=== PATIENT | female | born 1995 | race African-American/Black ===

== ENCOUNTER → 2017-09-25 | Outpatient (CLI) | payer SELFPAY ==
--- NOTE | 2017-09-25 16:27 | RADIOLOGY REPORT (SQ) ---
EXAM DESCRIPTION: U/S [id number] TRNABD 1GES W/ODOP COMPLETED DATE/TIME: 09/25/2017 3:41 pm REASON FOR STUDY: ENCOUNTER FOR SUPERVISION OF NORMAL Z34.81 ENCOUNTER FOR SUPRVSN OF NOR MAL , FIRST TRIM COMPARISON: None. TECHNIQUE: Transabdominal static and realtime grayscale images acquired of the pelvis. Additional se lected spectral and color Doppler images recorded. All images stored on PACs. bHCG: Not applicable. LIMITATIONS: None. FINDINGS: FETUS: Living intrauterine . EGA: 9 week. DARLING: 04/30/2018. FHR: 169 beats per minute. SUBCHORIONIC BLEED: No. SIZE OF BLEED: Not applicable. UTERUS: No masses. No anomalies. CERVICAL LENGTH: 2.8 cm. Closed. RIGHT ADNEXA: Ovary not identified. No adnexal free fluid. No adnexal masses. LEFT ADNEXA: Normal ovary with normal vascular flow. No adnexal free fluid. No adnexal masses. FREE FLUID: None. OTHER: No other significant finding. IMPRESSION: LIVING INTRAUTERINE . EGA 9 WEEK. Trimester of : First - 0 to 13 weeks. TECHNICAL DOCUMENTATION: JOB ID: [id number] [employer]- All Rights Reserved
== END ==
LOC: RAD 14:55
PROVIDERS: ATTEND Nurse Practitioner Women's Health
DX: Z34.81 Encounter for supervision of other normal pregnancy, first trimester (principal)
CPT/HCPCS: 76801

== ENCOUNTER 2017-10-14 13:46 | Emergency (ER) | payer SELFPAY ==
--- NOTE | 2017-10-14 14:14 | ER Document Report ---
ED Medical Screen (RME) - General Chief Complaint: Vaginal Bleeding Stated Complaint: VAGINAL BLEEDING Time Seen by Provider: 10/14/17 14:10 Notes: Patient is 12 weeks and started having vaginal bleeding about 45 minutes ago. Denies any pain or cramping. Has not had any bleeding during the previously. She had a normal first ultrasound of the here about 3 weeks ago. G2, P0, A1. TRAVEL OUTSIDE OF THE [place] IN LAST 30 DAYS: No - Related Data Allergies/Adverse Reactions: No Known Allergies Allergy (Verified 08/17/14 09:20) Past Medical History - Social History Frequency of alcohol use: None Drug Abuse: None Renal/ Medical History: Denies: Hx Peritoneal Dialysis Traumatic Medical History: Reports: Hx Fractures - C5,C6- Cheerleading accident Past Surgical History: Reports: Hx Breast Surgery - right breast cyst, Hx Orthopedic Surgery - C5-C6 surgery - Immunizations Immunizations up to date: Yes Hx Diphtheria, Pertussis, Tetanus Vaccination: Yes Physical Exam - Vital signs Vitals: Temp Pulse Resp BP Pulse Ox 97.7 F 115 H 18 138/91 H 100 10/14/17 13:53 10/14/17 13:53 10/14/17 13:53 10/14/17 13:53 10/14/17 13:53 Course - Vital Signs Vital signs: Temp Pulse Resp BP Pulse Ox 97.7 F 115 H 18 138/91 H 100 10/14/17 13:53 10/14/17 13:53 10/14/17 13:53 10/14/17 13:53 10/14/17 13:53
--- NOTE | 2017-10-14 15:30 | RADIOLOGY REPORT (SQ) ---
EXAM DESCRIPTION: U/S [id number] TRNABD 1GES W/ODOP COMPLETED DATE/TIME: 10/14/2017 3:20 pm REASON FOR STUDY: 12 weeks , vaginal bleeding COMPARISON: 09/25/2017. TECHNIQUE: Transabdominal static and realtime grayscale images acquired of the pelvis. Additional se lected spectral and color Doppler images recorded. All images stored on PACs. bHCG: Not applicable. LIMITATIONS: None. FINDINGS: FETUS: EGA: 12 week 3 day. DARLING: 04/25/2018. EFW: Not applicable. FHR: 150 beats per minute. DOMINGO: Adequate amount. CERVICAL LENGTH: 4.2 cm. Closed. UTERUS: No masses. RIGHT ADNEXA: Ovary not identified. No adnexal free fluid. No adnexal masses. LEFT ADNEXA: Ovary not identified. No adnexal free fluid. No adnexal masses. FREE FLUID: None. OTHER: Subchorionic bleed measuring 2.5 x 3.7 x 4.5 cm. IMPRESSION: LIVING INTRAUTERINE . ESTIMATED GESTATIONAL AGE:12 WEEK 3 DAY. SUBCHORIONIC BLEED. Trimester of : First trimester - 0 to 13 weeks. TECHNICAL DOCUMENTATION: JOB ID: [id number] [employer]- All Rights Reserved Reading location - IP/workstation name: [email or web address]
[2017-10-14 16:33] LABS: ABSOLUTE BASOPHILS # (AUTO) 0.1 10^3/uL (0.0-0.2); ABSOLUTE EOSINOPHILS # (AUTO) 0.1 10^3/uL (0.0-0.6); ABSOLUTE LYMPHOCYTES (AUTO) 2.4 10^3/uL (0.5-4.7); ABSOLUTE MONOCYTES (AUTO) 0.4 10^3/uL (0.1-1.4); ABSOLUTE NEUT (AUTO) 8.2 10^3/uL (1.7-8.2); BASOPHILS % (AUTO) 0.6 % (0-2); EOSINOPHILS % (AUTO) 0.8 % (0-6); HEMATOCRIT 39.7 % (36.0-47.0); HEMOGLOBIN 13.9 g/dL (12.0-15.5); LYMPHOCYTES % (AUTO) 21.6 % (13-45); MEAN CORPUSCULAR HEMOGLOBIN 29.8 pg (27.0-33.4); MEAN CORPUSCULAR VOLUME 85 fl (80-97); PLATELET COUNT 360 10^3/uL (150-450); RED BLOOD COUNT 4.66 10^6/uL (3.72-5.28); RED CELL DISTRIBUTION WIDTH 12.7 % (11.5-14.0); TOTAL CELLS COUNTED % (AUTO) 100 %; WHITE BLOOD COUNT 11.2 10^3/uL (4.0-10.5)
--- NOTE | 2017-10-14 16:34 | ER Document Report ---
ED General - General Chief Complaint: Vaginal Bleeding Stated Complaint: VAGINAL BLEEDING Time Seen by Provider: 10/14/17 14:10 Mode of Arrival: Ambulatory Information source: Patient TRAVEL OUTSIDE OF THE [place] IN LAST 30 DAYS: No - HPI Patient complains to provider of: vaginal bleeding Onset: Just prior to arrival Onset/Duration: Sudden Quality of pain: Cramping - pelvic Associated symptoms: None Exacerbated by: Denies Relieved by: Denies Similar symptoms previously: No Notes: . Miscarried 6 months ago at 5 weeks gestation. Patient states she is seen by the health department. - Related Data Allergies/Adverse Reactions: No Known Allergies Allergy (Verified 08/17/14 09:20) Past Medical History - General Information source: Patient - Social History Smoking Status: Never Smoker Frequency of alcohol use: None Drug Abuse: None Family History: Reviewed & Not Pertinent Patient has suicidal ideation: No Patient has homicidal ideation: No - Past Medical History Cardiac Medical History: Reports: None Pulmonary Medical History: Reports: None EENT Medical History: Reports: None Neurological Medical History: Reports: None Endocrine Medical History: Reports: None Renal/ Medical History: Reports: None. Denies: Hx Peritoneal Dialysis Malignancy Medical History: Reports: None GI Medical History: Reports: None Musculoskeltal Medical History: Reports Other - C5-C6 fracture Skin Medical History: Reports None Psychiatric Medical History: Reports: None Traumatic Medical History: Reports: Hx Fractures - C5,C6- Cheerleading accident Past Surgical History: Reports: Hx Breast Surgery - right breast cyst, Hx Orthopedic Surgery - C5-C6 surgery - Immunizations Immunizations up to date: Yes Hx Diphtheria, Pertussis, Tetanus Vaccination: Yes Review of Systems - Review of Systems Constitutional: No symptoms reported EENT: No symptoms reported Cardiovascular: No symptoms reported Respiratory: No symptoms reported Gastrointestinal: No symptoms reported Genitourinary: No symptoms reported Female Genitourinary: See HPI Musculoskeletal: No symptoms reported Skin: No symptoms reported Hematologic/Lymphatic: No symptoms reported Neurological/Psychological: No symptoms reported Physical Exam - Vital signs Vitals: Temp Pulse Resp BP Pulse Ox 97.7 F 115 H 18 138/91 H 100 10/14/17 13:53 10/14/17 13:53 10/14/17 13:53 10/14/17 13:53 10/14/17 13:53 - Notes Notes: PHYSICAL EXAMINATION: GENERAL: Well-appearing, well-nourished and in no acute distress. HEAD: Atraumatic, normocephalic. EYES: Pupils equal round and reactive to light, extraocular movements intact, conjunctiva are normal. ENT: Nares patent, oropharynx clear without exudates. Moist mucous membranes. Nose ring present. NECK: Normal range of motion, supple without lymphadenopathy LUNGS: Breath sounds clear to auscultation bilaterally and equal. No wheezes rales or rhonchi. HEART: Regular rate and rhythm without murmurs ABDOMEN: Soft, nontender, nondistended abdomen. No guarding, no rebound. No masses appreciated. Female : External female genitalia within normal limits. Vaginal vault had one blood clot in it with approximately 30 cc of blood. Os intact. Musculoskeletal: Normal range of motion, no pitting or edema. No cyanosis. NEUROLOGICAL: Cranial nerves grossly intact. Normal speech, normal gait. Normal sensory, motor exams PSYCH: Normal mood, normal affect. SKIN: Warm, Dry, normal turgor, no rashes or lesions noted. Course - Re-evaluation Re-evalutation: 10/14/17 17:30 Labs- All tests 24 hr 10/14/17 10/14/17 16:11 16:11 WBC 11.2 H RBC 4.66 Hgb 13.9 Hct 39.7 MCV 85 MCH 29.8 MCHC 35.0 RDW 12.7 Plt Count 360 Seg Neutrophils % 73.0 Lymphocytes % 21.6 Monocytes % 4.0 Eosinophils % 0.8 Basophils % 0.6 Absolute Neutrophils 8.2 Absolute Lymphocytes 2.4 Absolute Monocytes 0.4 Absolute Eosinophils 0.1 Absolute Basophils 0.1 Blood Type O POSITIVE Rhogam Indicated RHOGAM NOT INDICATED Obstetrics Ultrasound 10/14/17 14:12 IMPRESSION: LIVING INTRAUTERINE . ESTIMATED GESTATIONAL AGE:12 WEEK 3 DAY. SUBCHORIONIC BLEED. Trimester of : First trimester - 0 to 13 weeks. 10/14/17 17:39 I did spend 15 minutes in the patient's room going over the ultrasound report with the patient her boyfriend as well as her parents. I did go over the lab work as well.I did go over the findings on ultrasound including the subchorionic bleed. I did tell her that bleeding in although not normal does not absolutely mean she will miscarry. I said at this point it is indeterminate whether she will or she will not. I told her no heavy lifting or strenuous exercise. She is to be on pelvic rest. I did give her a list of OB/ [employer] doctors she is to call Sunday. She is also to call the health department for follow-up. I did go over reasons to return to the emergency department including fevers, increased abdominal pain, increased bleeding, fainting or any other concerns. All questions were answered that were asked by the patient's parents as well as the patient. Her boyfriend did not have any questions. Patient was discharged home in stable condition agreeable to the discharge plan. - Vital Signs Vital signs: Temp Pulse Resp BP Pulse Ox 97.7 F 87 16 132/73 H 100 10/14/17 13:53 10/14/17 17:06 10/14/17 15:20 10/14/17 17:06 10/14/17 13:53 - Laboratory Result Diagrams: 10/14/17 16:11 Laboratory results interpreted by me: 10/14/17 16:11 WBC 11.2 H - Diagnostic Test Radiology reviewed: Image reviewed, Reports reviewed Discharge - Discharge Clinical Impression: Subchorionic hematoma in second trimester, Threatened in second trimester Disposition: HOME, SELF-CARE Instructions: [facility] [employer] Doctors, Threatened Miscarriage ([facility]) Additional Instructions: Follow up with your physician tomorrow for further care or return to the ED IMMEDIATELY if symptoms worsen or new concerns occur. If you cannot afford to follow up with your primary care physician a list of low cost clinics have been provided at the end of your discharge papers as well. On Sunday please call the health department for follow-up. Also called the list of [employer]PER[employer] doctors I gave you to see if you get an appointment. Return to the emergency department if you have increased pain, increased vaginal bleeding, fevers, intractable vomiting or any other concerns. Please no heavy lifting or exertion. No sexual intercourse. Drink plenty of water and stay hydrated.
[2017-10-14 17:59] VITALS: BP 123/71
== END 2017-10-14 17:55 | disposition home or self-care (01) ==
LOC: ER 13:46
DX: O20.0 Threatened abortion (principal); Z3A.12 12 weeks gestation of pregnancy
CPT/HCPCS: 36415; 76801; 84702; 85025; 86900; 86901; 99284

== ENCOUNTER 2017-10-19 21:36 | Emergency (ER) | payer MEDICAID ==
[2017-10-19] MEDS ORDERED: NORMAL SALINE 1000 ML 1,000 ML IV ONE (23:24)
--- NOTE | 2017-10-19 23:25 | ER Document Report ---
ED Medical Screen (RME) - General Chief Complaint: Vaginal Bleeding Stated Complaint: VAGINAL BLEEDING WITH Time Seen by Provider: 10/19/17 23:23 Notes: 21-year-old female, at 13 weeks gestation by first trimester ultrasound, comes emergency department for chief complaint of increased cramping and bleeding. She had bleeding a few days ago which was mild, was evaluated here at that time and told that she was okay, told return if she worsens, she has worsened and is now is passing clots. She also states that she continues to have morning sickness and has vomiting multiple times a day. Denies fevers. Denies passing out. TRAVEL OUTSIDE OF THE [place] IN LAST 30 DAYS: No - Related Data Allergies/Adverse Reactions: No Known Allergies Allergy (Verified 10/19/17 21:36) Past Medical History - Social History Chew tobacco use (# tins/day): No Frequency of alcohol use: None Drug Abuse: None Renal/ Medical History: Denies: Hx Peritoneal Dialysis Traumatic Medical History: Reports: Hx Fractures - C5,C6- Cheerleading accident Past Surgical History: Reports: Hx Breast Surgery - right breast cyst, Hx Orthopedic Surgery - C5-C6 surgery - Immunizations Immunizations up to date: Yes Hx Diphtheria, Pertussis, Tetanus Vaccination: Yes Physical Exam - Vital signs Vitals: Temp Pulse Resp BP Pulse Ox 98.5 F 101 H 14 135/72 H 99 10/19/17 21:40 10/19/17 21:40 10/19/17 21:40 10/19/17 21:40 10/19/17 21:40 - General General appearance: Appears well In distress: None - Cardiovascular Rhythm: Regular, Tachycardia - Borderline Heart sounds: Normal auscultation, S1 appreciated, S2 appreciated Course - Vital Signs Vital signs: Temp Pulse Resp BP Pulse Ox 98.5 F 101 H 14 135/72 H 99 10/19/17 21:40 10/19/17 21:40 10/19/17 21:40 10/19/17 21:40 10/19/17 21:40
[2017-10-19 23:54] LABS: ABSOLUTE BASOPHILS # (AUTO) 0.1 10^3/uL (0.0-0.2); ABSOLUTE EOSINOPHILS # (AUTO) 0.1 10^3/uL (0.0-0.6); ABSOLUTE LYMPHOCYTES (AUTO) 2.4 10^3/uL (0.5-4.7); ABSOLUTE MONOCYTES (AUTO) 0.6 10^3/uL (0.1-1.4); ABSOLUTE NEUT (AUTO) 12.2 10^3/uL (1.7-8.2); BASOPHILS % (AUTO) 0.4 % (0-2); HEMATOCRIT 39.1 % (36.0-47.0); HEMOGLOBIN 13.7 g/dL (12.0-15.5); LYMPHOCYTES % (AUTO) 15.7 % (13-45); MEAN CORPUSCULAR HEMOGLOBIN 30.1 pg (27.0-33.4); MEAN CORPUSCULAR HGB CONC 35.1 g/dL (32.0-36.0); MEAN CORPUSCULAR VOLUME 86 fl (80-97); PLATELET COUNT 357 10^3/uL (150-450); RED BLOOD COUNT 4.55 10^6/uL (3.72-5.28); RED CELL DISTRIBUTION WIDTH 12.8 % (11.5-14.0); SEGMENTED NEUTROPHILS % (AUTO) 78.9 % (42-78); TOTAL CELLS COUNTED % (AUTO) 100 %; WHITE BLOOD COUNT 15.4 10^3/uL (4.0-10.5)
[2017-10-20 00:08] LABS: ALANINE AMINOTRANSFERASE 23 U/L (9-52); ALBUMIN 4.5 g/dL (3.5-5.0); ALKALINE PHOSPHATASE 51 U/L (38-126); ANION GAP 14 (5-19); ASPARTATE AMINO TRANSFERASE 26 U/L (14-36); BILIRUBIN,DIRECT 0.2 mg/dL (0.0-0.4); BILIRUBIN,TOTAL 0.4 mg/dL (0.2-1.3); BLOOD UREA NITROGEN 10 mg/dL (7-20); CALCIUM 10.3 mg/dL (8.4-10.2); CARBON DIOXIDE 19 mmol/L (22-30); CHLORIDE 102 mmol/L (98-107); GLUCOSE 82 mg/dL (75-110); POTASSIUM 3.6 mmol/L (3.6-5.0); SODIUM 135.4 mmol/L (137-145); TOTAL PROTEIN 7.5 g/dL (6.3-8.2)
[2017-10-20 00:32] LABS: APPEARANCE,URINE SLIGHTLY-CLOUDY; BILIRUBIN,URINE NEGATIVE (NEGATIVE); COLOR,URINE YELLOW; GLUCOSE, URINE NEGATIVE (NEGATIVE); KETONES,URINE 20 mg/dL (NEGATIVE); LEUKOCYTE ESTERASE,URINE MODERATE (NEGATIVE); NITRITE,URINE NEGATIVE (NEGATIVE); PROTEIN,URINE NEGATIVE (NEGATIVE); UROBILINOGEN,URINE NEGATIVE mg/dL (<2.0)
--- NOTE | 2017-10-20 01:39 | RADIOLOGY REPORT (SQ) ---
EXAM DESCRIPTION: U/S OB TRANSVAG W/DOPPLER CLINICAL HISTORY: 21 years Female, pelvic pain, bleeding, passing clots COMPARISON: 10/14/2017 TECHNIQUE: Complete transabdominal first trimester obstetrical ultrasound. FINDINGS: The uterus measures 10.6 x 7.2 x 9.4 cm. Within the endometrium there is a gestational sac. The crown-rump length measures 6.6 cm compatible with an estimated gestational age of 13 weeks, 0 days. No myometrial abnormalities. heart rate of 153 bpm. The gestational sac has a normal qualitative appearance. Previously described subchorionic hemorrhage is not definitely identified on this study. The cervix measures 2.8 cm and is closed. The ovaries are not identified. No free pelvic fluid. IMPRESSION: 1. Single live intrauterine with estimated gestational age of 13 weeks, 0 days. heart rate of 153 bpm.
[2017-10-20] MEDS ORDERED: CEPHALEXIN 500 MG CAPSULE PO ONE (02:25)
[2017-10-20] MEDS ORDERED: ONDANSETRON ODT 4 MG TAB (6 TAB/ER DISP) PO PRN (02:26)
--- NOTE | 2017-10-20 02:28 | ER Document Report ---
ED GI/ - General Chief Complaint: Vaginal Bleeding Stated Complaint: VAGINAL BLEEDING WITH Time Seen by Provider: 10/19/17 23:23 Notes: Patient is a 21-year-old female, at 13 weeks gestation by first trimester ultrasound, comes emergency department for chief complaint of increased cramping and bleeding. She had bleeding a few days ago which was mild, was evaluated here at that time and told that she was okay, told return if she worsens, she has worsened and is now is passing clots. She also states that she continues to have morning sickness and has vomiting multiple times a day. Denies fevers. Denies passing out. TRAVEL OUTSIDE OF THE [place] IN LAST 30 DAYS: No - Related Data Allergies/Adverse Reactions: No Known Allergies Allergy (Verified 10/19/17 21:36) Past Medical History - General Information source: Patient - Social History Smoking Status: Never Smoker Chew tobacco use (# tins/day): No Frequency of alcohol use: None Drug Abuse: None Lives with: Family Family History: Reviewed & Not Pertinent Patient has suicidal ideation: No Patient has homicidal ideation: No Renal/ Medical History: Denies: Hx Peritoneal Dialysis Traumatic Medical History: Reports: Hx Fractures - C5,C6- Cheerleading accident Past Surgical History: Reports: Hx Breast Surgery - right breast cyst, Hx Orthopedic Surgery - C5-C6 surgery - Immunizations Immunizations up to date: Yes Hx Diphtheria, Pertussis, Tetanus Vaccination: Yes Review of Systems - Review of Systems Constitutional: No symptoms reported EENT: No symptoms reported Cardiovascular: No symptoms reported Respiratory: No symptoms reported Gastrointestinal: See HPI Genitourinary: See HPI Female Genitourinary: See HPI Musculoskeletal: No symptoms reported Skin: No symptoms reported Hematologic/Lymphatic: No symptoms reported Neurological/Psychological: No symptoms reported Physical Exam - Vital signs Vitals: Temp Pulse Resp BP Pulse Ox 98.5 F 101 H 14 135/72 H 99 10/19/17 21:40 10/19/17 21:40 10/19/17 21:40 10/19/17 21:40 10/19/17 21:40 Interpretation: Normal - General General appearance: Appears well In distress: None - HEENT Head: Normocephalic, Atraumatic Eyes: Normal Pupils: PERRL Mouth/Lips: Normal Mucous membranes: Dry Pharynx: Normal Neck: Normal - Respiratory Respiratory status: No respiratory distress Chest status: Nontender Breath sounds: Normal. No: Decreased air movement, Wheezing Chest palpation: Normal - Cardiovascular Rhythm: Regular, Tachycardia - Borderline Heart sounds: Normal auscultation, S1 appreciated, S2 appreciated Murmur: No Normal capillary refill: Yes - Abdominal Inspection: Normal Distension: No distension Bowel sounds: Normal Tenderness: Nontender. No: Tender, Guarding - Back Back: Normal, Nontender. No: Tender, CVA tenderness - Extremities General upper extremity: Normal inspection, Nontender, Normal strength, Normal temperature General lower extremity: Normal inspection, Nontender, Normal strength, Normal temperature. No: Edema - Neurological Neuro grossly intact: Yes Cognition: Normal Orientation: AAOx4 [place] Coma Scale Eye Opening: Spontaneous [place] Coma Scale Verbal: Oriented [place] Coma Scale Motor: Obeys Commands [place] Coma Scale Total: 15 Speech: Normal Cranial nerves: Normal Cerebellar coordination: Normal Motor strength normal: LUE, RUE, LLE, RLE Additional motor exam normals: Equal student services coordinator Sensory: Normal - Psychological Associated symptoms: Normal affect, Normal mood - Skin Skin Temperature: Warm Skin Moisture: Dry Skin Color: Normal Course - Re-evaluation Re-evalutation: CBC shows some leukocytosis, bicarbonate is slightly low, specific gravity is elevated. Consistent with dehydration. Patient is already had labs drawn, she refuses an IV, she asks to orally rehydrate. Patient was given oral fluids, her tachycardia did resolve with this, she denies lightheadedness. Her abdomen is very soft and benign, I have very low suspicion of appendicitis or acute emergent etiology otherwise. Urinalysis does suggest infection but patient has no fever or flank pain suggesting pyelonephritis. Ultrasound shows living IUP, subchorionic bleed has resolved, no concerning a normality is noted. RhoGam not indicated, she had this tested 2 days ago. Discussed with patient, provided results, will cover with antibiotics, discussed follow-up and return precautions, patient states understanding and agreement. - Vital Signs Vital signs: Temp Pulse Resp BP Pulse Ox 97.9 F 99 16 123/76 97 10/20/17 02:36 10/20/17 02:36 10/20/17 02:36 10/20/17 02:36 10/20/17 02:36 - Laboratory Result Diagrams: 10/19/17 23:36 10/19/17 23:36 Laboratory results interpreted by me: 10/19/17 10/19/17 10/19/17 23:36 23:36 23:36 WBC 15.4 H Seg Neutrophils % 78.9 H Absolute Neutrophils 12.2 H Sodium 135.4 L Carbon Dioxide 19 L Calcium 10.3 H Beta HCG, Quant 391720.00 H Urine Ketones 20 H Urine Blood LARGE H Ur Leukocyte Esterase MODERATE H Discharge - Discharge Clinical Impression: Pelvic cramping, Vaginal bleeding Condition: Stable Disposition: HOME, SELF-CARE Additional Instructions: Your workup shows a normal ultrasound, the previous subchorionic hemorrhage appears to have resolved. Your workup also shows a urinary tract infection. Take Keflex antibiotic as prescribed. Take Zofran if needed for nausea related to , you can also take Benadryl. Drink plenty of fluids to rehydrate. Follow-up with primary care as planned. Return if you worsen including fever of 100.4 or greater, severe pain, heavy bleeding, vomiting that is uncontrolled , or any other concerning symptoms. Prescriptions: Cephalexin Monohydrate [Keflex 500 mg Capsule] 500 mg PO BID #10 capsule Ondansetron [Zofran Odt 4 mg Tablet] 1 - 2 tab PO Q4H PRN #30 tab.rapdis PRN Reason: For Nausea/Vomiting
[2017-10-20 02:39] VITALS: BP 123/76
== END 2017-10-20 02:39 | disposition home or self-care (01) ==
LOC: ER 21:36
DX: O20.9 Hemorrhage in early pregnancy, unspecified (principal); R10.2 Pelvic and perineal pain; Z3A.13 13 weeks gestation of pregnancy
CPT/HCPCS: 36415; 76817; 80053; 81001; 84702; 85025; 93976; 99284

== ENCOUNTER 2017-10-24 16:19 | Emergency (ER) | payer MEDICAID ==
[2017-10-24 17:47] LABS: APPEARANCE,URINE SLIGHTLY-CLOUDY; BILIRUBIN,URINE NEGATIVE (NEGATIVE); COLOR,URINE YELLOW; GLUCOSE, URINE NEGATIVE (NEGATIVE); KETONES,URINE NEGATIVE (NEGATIVE); LEUKOCYTE ESTERASE,URINE MODERATE (NEGATIVE); NITRITE,URINE NEGATIVE (NEGATIVE); PROTEIN,URINE NEGATIVE (NEGATIVE); URINE SPECIFIC GRAVITY 1.021; UROBILINOGEN,URINE NEGATIVE mg/dL (<2.0)
--- NOTE | 2017-10-24 18:01 | ER Document Report ---
ED General - General Chief Complaint: Vaginal Discharge Stated Complaint: VAGINAL DISCHARGE/ Time Seen by Provider: 10/24/17 17:12 Information source: Patient Notes: Patient presents with discharge of vaginal fluid yesterday. She states she told her mom about today. She states that her mom recommended she come the emergency department. She states she has been seen in the emergency department twice already during this . She states ultrasound showed a subchorionic hemorrhage. She states that she was having spotting previously but the spotting is now significantly improved. No vomiting or diarrhea. She does have some mild lower abdominal cramping. He does go to her low back. Nothing makes it better or worse. It is intermittent. She states she has 1 more appointment at the health department and that she referred to an [employer]. TRAVEL OUTSIDE OF THE [place] IN LAST 30 DAYS: No - Related Data Allergies/Adverse Reactions: No Known Allergies Allergy (Verified 10/24/17 16:33) Past Medical History - General Information source: Patient - Social History Smoking Status: Never Smoker Chew tobacco use (# tins/day): No Frequency of alcohol use: None Drug Abuse: None Family History: Reviewed & Not Pertinent Patient has suicidal ideation: No Patient has homicidal ideation: No Renal/ Medical History: Denies: Hx Peritoneal Dialysis Traumatic Medical History: Reports: Hx Fractures - C5,C6- Cheerleading accident Past Surgical History: Reports: Hx Breast Surgery - right breast cyst, Hx Orthopedic Surgery - C5-C6 surgery - Immunizations Immunizations up to date: Yes Hx Diphtheria, Pertussis, Tetanus Vaccination: Yes Review of Systems - Review of Systems Constitutional: denies: Chills, Fever Cardiovascular: denies: Palpitations, Heart racing Respiratory: denies: Cough, Short of breath -: Yes All other systems reviewed and negative Physical Exam - Vital signs Vitals: Temp Pulse Resp BP Pulse Ox 98.3 F 80 14 119/69 99 10/24/17 16:38 10/24/17 16:38 10/24/17 16:38 10/24/17 16:38 10/24/17 16:38 Interpretation: Normal - Notes Notes: Bedside ultrasound shows an intrauterine with a heart rate of 160. - General General appearance: Appears well, Alert - HEENT Head: Normocephalic, Atraumatic Eyes: Normal Pupils: PERRL - Respiratory Respiratory status: No respiratory distress Chest status: Nontender Breath sounds: Normal Chest palpation: Normal - Cardiovascular Rhythm: Regular Heart sounds: Normal auscultation Murmur: No - Abdominal Inspection: Normal Distension: No distension Bowel sounds: Normal Tenderness: Nontender Organomegaly: No organomegaly - Back Back: Normal, Nontender - Extremities General upper extremity: Normal inspection, Nontender, Normal color, Normal ROM , Normal temperature General lower extremity: Normal inspection, Nontender, Normal color, Normal ROM , Normal temperature, Normal weight bearing. No: Benjamín's sign - Neurological Neuro grossly intact: Yes Cognition: Normal Orientation: AAOx4 [place] Coma Scale Eye Opening: Spontaneous [place] Coma Scale Verbal: Oriented [place] Coma Scale Motor: Obeys Commands [place] Coma Scale Total: 15 Speech: Normal Motor strength normal: LUE, RUE, LLE, RLE Sensory: Normal - Psychological Associated symptoms: Normal affect, Normal mood - Skin Skin Temperature: Warm Skin Moisture: Dry Skin Color: Normal Course - Vital Signs Vital signs: Temp Pulse Resp BP Pulse Ox 98.3 F 80 14 119/69 99 10/24/17 16:38 10/24/17 16:38 10/24/17 16:38 10/24/17 16:38 10/24/17 16:38 - Laboratory Laboratory results interpreted by me: 10/24/17 17:30 Urine Blood MODERATE H Ur Leukocyte Esterase MODERATE H Discharge - Discharge Clinical Impression: UTI (urinary tract infection) during Qualifiers: Trimester: second trimester Qualified Code(s): O23.42 - Unspecified infection of urinary tract in , second trimester Condition: Stable Disposition: HOME, SELF-CARE Instructions: Urinary Tract Infection ([facility]) Additional Instructions: Please call your [employer] provider as soon as possible to arrange follow-up Prescriptions: Nitrofurantoin/Nitrofuran Mac [Macrobid 100 mg Capsule] 1 tab PO BID #20 capsule Forms: Return to Work Referrals: PROSPER JARVIS MD [Primary Care Provider] - Follow up as needed
[2017-10-24 18:26] VITALS: BP 120/68
== END 2017-10-24 18:19 | disposition home or self-care (01) ==
LOC: ER 16:19
DX: O23.42 Unspecified infection of urinary tract in pregnancy, second trimester (principal); Z3A.12 12 weeks gestation of pregnancy
CPT/HCPCS: 81001; 99283

== ENCOUNTER 2017-10-28 10:22 | Emergency (ER) | payer MEDICAID ==
--- NOTE | 2017-10-28 10:44 | ER Document Report ---
ED General - General Mode of Arrival: Ambulatory Information source: Patient TRAVEL OUTSIDE OF THE [place] IN LAST 30 DAYS: No - General Chief Complaint: Vaginal Bleeding Stated Complaint: VAGINAL BLEEDING Time Seen by Provider: 10/28/17 10:30 Notes: 21 y.o female presents to the ED with vaginal bleeding. She has know intrauterine and subchorionic bleeding. She states that her subchorionic bleeding had subsided a few days ago but began to cramp and have vaginal spotting yesterday. She states that she has passed three large clots through the night and into this morning. A1. (MAMTA AGUILAR) - Related Data Allergies/Adverse Reactions: No Known Allergies Allergy (Verified 10/28/17 10:22) Past Medical History - General Information source: Patient - Social History Smoking Status: Unknown if Ever Smoked Chew tobacco use (# tins/day): No Frequency of alcohol use: None Drug Abuse: None Family History: Reviewed & Not Pertinent Patient has suicidal ideation: No Patient has homicidal ideation: No Renal/ Medical History: Denies: Hx Peritoneal Dialysis Traumatic Medical History: Reports: Hx Fractures - C5,C6- Cheerleading accident Past Surgical History: Reports: Hx Breast Surgery - right breast cyst, Hx Orthopedic Surgery - C5-C6 surgery - Immunizations Immunizations up to date: Yes Hx Diphtheria, Pertussis, Tetanus Vaccination: Yes Review of Systems - Review of Systems Constitutional: No symptoms reported EENT: No symptoms reported Cardiovascular: No symptoms reported Respiratory: No symptoms reported Genitourinary: See HPI Female Genitourinary: See HPI, , Vaginal bleeding - and passing clots, Other - abd cramping Musculoskeletal: No symptoms reported Skin: No symptoms reported Hematologic/Lymphatic: No symptoms reported Neurological/Psychological: No symptoms reported -: Yes All other systems reviewed and negative Physical Exam - Vital signs Vitals: Temp Pulse Resp BP Pulse Ox 98.4 F 118 H 16 113/68 100 10/28/17 10:24 10/28/17 10:24 10/28/17 10:24 10/28/17 10:24 10/28/17 10:24 - Notes Notes: Physical Exam: General: Alert, appears well. HEENT: Normocephalic. Atraumatic. PERRL. Extraocular movements intact. Oropharynx clear. Neck: Supple. Non-tender. Respiratory: No respiratory distress. Clear and equal breath sounds bilaterally. Cardiovascular: Regular rate and rhythm. Abdominal: Normal Inspection. Non-tender. No distension. Normal Bowel Sounds. Back: Non-tender. No deformity or step off. Extremities: Moves all four extremities. Upper extremities: Normal inspection. Normal ROM. Lower extremities: Normal inspection. No edema. Normal ROM. Neurological: Normal cognition. AAOx4. Normal speech. Psychological: Normal affect. Normal Mood. Skin: Warm. Dry. Normal color. (AMMTA AGUILAR) Course - Re-evaluation Re-evalutation: 10/28/17 11:03 Patient presents due to passing several blood clots starting this morning. Will order formal ultrasound to evaluate viability. Denies any loss of fluids or foul vaginal discharge. She is already on Macrobid for urinary tract infection. 10/28/17 11:05 Patient does have tachycardia but she admits to not drinking as much water as she should. She denies any chest pain or shortness of breath at this time. 10/28/17 11:07 Chart review shows patient is a positive program not indicated. Chart review indicates hemoglobin within normal limits as only past 3 blood clots since this morning do not feel H&H redraws necessary at this time. 10/28/17 12:40 Ultrasound shows demise. Discussed case with Dr. Diaz. Patient was informed and states she is currently not having any active bleeding. Dr. Diaz instructed for patient to follow-up in her office tomorrow with the patient's phone number was provided Dr. Diaz whose office will call the patient tomorrow. Return precautions are if she develops any heavy bleeding for more than 2 hours to return to the emergency department and she will be admitted under Dr. Diaz's service. 10/28/17 12:43 Pulse 96 on reevaluation (REYES JJ) - Vital Signs Vital signs: Temp Pulse Resp BP Pulse Ox 97.8 F 96 16 117/74 99 10/28/17 12:31 10/28/17 12:31 10/28/17 10:27 10/28/17 12:31 10/28/17 12:31 Discharge - Discharge Clinical Impression: Incomplete miscarriage Condition: Good Disposition: HOME, SELF-CARE Additional Instructions: You will be called by Dr. Diaz's office for an appointment tomorrow morning and a repeat ultrasound. Please return to the emergency department for reevaluation if you begin to have heavy bleeding that lasts for more than 2 hours. Referrals: BEVERLY DIAZ MD [ACTIVE STAFF] - Follow up as needed Scribe Attestation: 10/28/17 20:08 I personally performed the services described documentation, reviewed and edited the documentation which was dictated to describe my presence, and it accurately records my words and actions. (REYES JJ) Scribe Documentation - Scribe Written by Pako:: Pako Doe 10/28/17 1059 acting as scribe for :: Frank
--- NOTE | 2017-10-28 12:06 | RADIOLOGY REPORT (SQ) ---
EXAM DESCRIPTION: U/S OB LIMITED COMPLETED DATE/TIME: 10/28/2017 11:32 am REASON FOR STUDY: vag bleed, eval for FHT COMPARISON: OB ultrasound 10/14/2017 TECHNIQUE: Limited transabdominal grayscale ultrasound for evaluation of specific requested obstetri elinor parameters. LIMITATIONS: None. FINDINGS: The intrauterine gestational sac is present without amniotic fluid. There is an intrauterine fetus without cardiac activity on color flow, M-mode, or real-time imaging. Placenta posterior. No free pelvic fluid. Uterus 10 x 8 x 8 cm in size. Ovaries not examined. IMPRESSION: demise. Trimester of : Prior ultrasound 10/14/2017 generated and age of 12 weeks 3 days. COMMUNICATION The critical information above was relayed directly by me Pertinent findings on the imaging study reported as a CRITICAL RESULT to REYES JJ MD at11:50 on 10/11. Category of Critical Result: demise to on at with readback verification. TECHNICAL DOCUMENTATION: JOB ID: [id number] [id number]- All Rights Reserved Reading location - IP/workstation name: [email or web address]
[2017-10-28 12:33] VITALS: BP 117/74
[2017-10-28] MEDS ORDERED: HYDROCODONE/ACETAMINOPHEN 5-325 MG (6 TAB/ER DISP) PO PRN (12:46)
== END 2017-10-28 12:53 | disposition home or self-care (01) ==
LOC: ER 10:22
DX: O03.4 Incomplete spontaneous abortion without complication (principal); R00.0 Tachycardia, unspecified
CPT/HCPCS: 76815; 99284

== ENCOUNTER 2017-10-28 20:04 | Observation (INO) | payer MEDICAID ==
[2017-10-28] MEDS ORDERED: MORPHINE SULFATE 10 MG/ML INJ IV ONE (21:14)
[2017-10-28] MEDS ORDERED: NORMAL SALINE 1000 ML 1,000 ML IV ONE (21:15)
[2017-10-28] MEDS ORDERED: ONDANSETRON HCL INJ/PF 4 MG/2 ML SDV IV ONE (21:15)
[2017-10-28] MEDS ORDERED: MISOPROSTOL 0.2 MG TABLET ONE (21:37)
--- NOTE | 2017-10-28 21:51 | ER Document Report ---
ED General - General Chief Complaint: Vaginal Bleeding Stated Complaint: ABDOMINAL PAIN Time Seen by Provider: 10/28/17 21:13 Information source: Patient, Parent, [facility] Records Notes: 19-year-old A1 at 14 weeks presents for the second time today with complaint of abdominal cramping and vaginal bleeding. Patient was seen earlier today and underwent an ultrasound which showed demise. Patient also had an ultrasound on October 14, 2017 which did show an intrauterine with a heart rate of 153. Per the mother of the patient patient has been experiencing intermittent bleeding for the last few weeks with worsening of bleeding and abdominal cramping overnight. Patient did admit to passing a few large clots. She has associated nausea. She denies any fever, chills, chest pain, shortness of breath. She has been receiving care. Patient has a history of previous miscarriage approximately 1 year ago. TRAVEL OUTSIDE OF THE [place] IN LAST 30 DAYS: No - Related Data Allergies/Adverse Reactions: No Known Allergies Allergy (Verified 10/28/17 10:22) Past Medical History - Social History Smoking Status: Never Smoker Frequency of alcohol use: None Drug Abuse: None Lives with: Alone Family History: Reviewed & Not Pertinent - Medical History Medical History: Negative Renal/ Medical History: Denies: Hx Peritoneal Dialysis Traumatic Medical History: Reports: Hx Fractures - C5,C6- Cheerleading accident Past Surgical History: Reports: Hx Breast Surgery - right breast cyst, Hx Orthopedic Surgery - C5-C6 surgery - Immunizations Immunizations up to date: Yes Hx Diphtheria, Pertussis, Tetanus Vaccination: Yes Review of Systems - Review of Systems Constitutional: See HPI Gastrointestinal: Abdominal pain Female Genitourinary: , Vaginal bleeding Physical Exam - Vital signs Vitals: Temp Pulse Resp BP Pulse Ox 98.5 F 112 H 16 96/63 L 100 10/28/17 20:09 10/28/17 20:09 10/28/17 20:09 10/28/17 20:09 10/28/17 20:09 Interpretation: Normal, Tachycardic - General General appearance: Appears well, Alert In distress: Moderate Notes: Patient actively miscarrying. - HEENT Head: Normocephalic, Atraumatic Eyes: Normal Extraocular movements intact: Yes Pupils: PERRL - Cardiovascular Rhythm: Tachycardia Murmur: No Pulses: Normal: Radial - Abdominal Distension: No distension Tenderness: Tender - Suprapubic tenderness - Genitourinary Speculum exam: Products of conception, Other - large clots Vaginal bleeding: Heavy Course - Re-evaluation Re-evalutation: 10/28/17 22:14 21-year-old female A1 at 14 weeks gestation presents for the second time today with complaint of vaginal bleeding. Upon my exam patient is in the bathroom on the commode and has already passed the fetus. Patient was transferred to a bed and uterine massage was performed. She has not yet passed the placenta. REIKI PRACTITIONER was consulted and stated to let her pass it on her own. Previous medical records reviewed. Patient was seen earlier today and had a transvaginal ultrasound which showed demise. He was instructed to return with heavy vaginal bleeding and abdominal pain. REIKI PRACTITIONER at bedside Dr Shearer who performed speculum exam and removed several more clots. Cytotec was administered and patient was admitted to Dr Shearer. CBC and type and screen are pending. - Vital Signs Vital signs: Temp Pulse Resp BP Pulse Ox 98.5 F 112 H 16 96/63 L 100 10/28/17 20:09 10/28/17 20:09 10/28/17 20:09 10/28/17 20:09 10/28/17 20:09 - Laboratory Result Diagrams: 10/28/17 21:05 Discharge - Discharge Clinical Impression: Incomplete miscarriage Condition: Good Disposition: ADMITTED INPATIENT Admitting Provider: REIKI PRACTITIONER Dr Shearer Unit Admitted: Post
[2017-10-28] MEDS ORDERED: MISOPROSTOL 0.2 MG TABLET PR ONE (21:53)
[2017-10-28] MEDS ORDERED: DOXYCYCLINE HYCLATE INJ 100 MG VIAL IV ONE (21:58)
[2017-10-28 22:21] LABS: ABSOLUTE LYMPHOCYTES (AUTO) 0.8 10^3/uL (0.5-4.7); ABSOLUTE MONOCYTES (AUTO) 0.6 10^3/uL (0.1-1.4); ABSOLUTE NEUT (AUTO) 13.7 10^3/uL (1.7-8.2); BASOPHILS % (AUTO) 0.3 % (0-2); EOSINOPHILS % (AUTO) 0.1 % (0-6); HEMATOCRIT 34.5 % (36.0-47.0); HEMOGLOBIN 12.3 g/dL (12.0-15.5); LYMPHOCYTES % (AUTO) 5.5 % (13-45); MEAN CORPUSCULAR HEMOGLOBIN 30.2 pg (27.0-33.4); MEAN CORPUSCULAR HGB CONC 35.5 g/dL (32.0-36.0); MEAN CORPUSCULAR VOLUME 85 fl (80-97); MONOCYTES % (AUTO) 3.7 % (3-13); PLATELET COUNT 358 10^3/uL (150-450); RED BLOOD COUNT 4.06 10^6/uL (3.72-5.28); RED CELL DISTRIBUTION WIDTH 12.5 % (11.5-14.0); SEGMENTED NEUTROPHILS % (AUTO) 90.4 % (42-78); TOTAL CELLS COUNTED % (AUTO) 100 %; WHITE BLOOD COUNT 15.1 10^3/uL (4.0-10.5)
[2017-10-28] MEDS ORDERED: ONDANSETRON HCL INJ/PF 4 MG/2 ML SDV IV PRN (23:19)
[2017-10-28] MEDS ORDERED: NALBUPHINE HCL INJ 10 MG/1 ML AMPULE INJ ONE (23:19)
[2017-10-28] MEDS ORDERED: NALBUPHINE HCL INJ 10 MG/1 ML AMPULE ONE (23:27)
[2017-10-28] MEDS ORDERED: ONDANSETRON HCL INJ/PF 4 MG/2 ML SDV ONE (23:29)
[2017-10-28] MEDS ORDERED: RINGERS SOLUTION,LACTATED 1,000 ML IV PRN (23:34)
[2017-10-28] MEDS ORDERED: RINGERS SOLUTION,LACTATED 1,000 ML IV ONE (23:34)
--- NOTE | 2017-10-28 23:37 | PDOC H&P ---
History of Present Illness Admission Date/PCP: 10/28/2017 Patient complains of: vaginal bleeding and cramping. IUFD dx today History of Present Illness: TATO DAVIS is a 21 year old female at 13+5ega by US done at 9wks. Pt is seen by BIRDIE. She was seen in the ER today for passage of 3 small clots and then no further bleeding. US done this am noted no FHR. Pt was to f/ u in [facility] tomorrow am since hemodynamically stable. She presented to ER this evening with increase bleeding and cramping and passed approx 14wks fetus upon arrival in ER. ER physician called for assistance. Moderate amount of bleeding noted and placenta did not appear to be delivered. 1000mcg of Cytotec placed by myself in ER for delivery of placenta and labs requested. patient admitted to the floor for monitoring. Past Medical History Gynecological Infection: No Past Surgical History Past Surgical History: Reports: Orthopedic Surgery - C5-C6 surgery Social History Information Source: Patient, Parent Lives with: Family Smoking Status: Unknown if Ever Smoked Frequency of Alcohol Use: None Hx Recreational Drug Use: No Drugs: None Hx Prescription Drug Abuse: No - Advance Directive Resuscitation Status: Full Code Family History Family History: Reviewed & Not Pertinent Parental Family History Reviewed: No Children Family History Reviewed: NA Sibling(s) Family History Reviewed.: NA Medication/Allergy Home Medications: Nitrofurantoin/Nitrofuran Mac [Macrobid 100 mg Capsule] 1 tab PO BID #20 capsule 10/24/17 Allergies/Adverse Reactions: No Known Allergies Allergy (Verified 10/28/17 10:22) Review of Systems Constitutional: ABSENT: chills, fever(s), headache(s), weight gain, weight loss Cardiovascular: ABSENT: chest pain, dyspnea on exertion, edema, orthropnea, palpitations Respiratory: ABSENT: cough, hemoptysis Gastrointestinal: PRESENT: abdominal pain. ABSENT: constipation, diarrhea, hematemesis, hematochezia, nausea, vomiting Genitourinary: PRESENT: other - vaginal bleeding and cramping. Neurological: ABSENT: abnormal gait, abnormal speech, confusion, dizziness, focal weakness, syncope Psychiatric: ABSENT: anxiety, depression, homidical ideation, suicidal ideation Endocrine: ABSENT: cold intolerance, heat intolerance, polydipsia, polyuria Hematologic/Lymphatic: ABSENT: easy bleeding, easy bruising Physical Exam - Physical Exam Vital Signs: Temp Pulse Resp BP Pulse Ox 98.5 F 112 H 16 96/63 L 100 10/28/17 20:09 10/28/17 20:09 10/28/17 20:09 10/28/17 20:09 10/28/17 20:09 Intake & Output 10/27/17 10/28/17 10/29/17 06:59 06:59 06:59 Weight 54 kg General appearance: PRESENT: no acute distress, well-developed, well-nourished Head exam: PRESENT: atraumatic, normocephalic Respiratory exam: PRESENT: clear to auscultation marty, symmetrical, unlabored Cardiovascular exam: PRESENT: RRR. ABSENT: diastolic murmur, rubs, systolic murmur Pulses: PRESENT: normal dorsalis pedis pul, +2 pedal pulses bilateral Vascular exam: PRESENT: normal capillary refill GI/Abdominal exam: PRESENT: normal bowel sounds, soft, tenderness. ABSENT: distended, guarding, mass, organolmegaly, rebound Rectal exam: PRESENT: deferred Gentrourinary exam: PRESENT: other - placenta appears partially in os Extremities exam: PRESENT: full ROM. ABSENT: calf tenderness, clubbing, pedal edema Neurological exam: PRESENT: alert, awake, oriented to person, oriented to place , oriented to time, oriented to situation, CN II-XII grossly intact. ABSENT: motor sensory deficit Psychiatric exam: PRESENT: appropriate affect, normal mood. ABSENT: homicidal ideation, suicidal ideation Skin exam: PRESENT: dry, intact, warm. ABSENT: cyanosis, rash Assessment & Plan - Diagnosis (1) Incomplete miscarriage Is this a current diagnosis for this admission?: Yes Plan: fetus passed and c/w approx 14wks fetus. Fetus to be sent to pathology via ER. Cytotec placed for delivery of placenta. If not e/o delivery of placenta or increased bleeding or paitent becomes hemodynamically stable then may need to proceed to the OR for Dilation and currettage of retained placenta. Reviewed with patient and mother plan of care. - Time Time Spent with patient: 15 Medications reviewed and adjusted accordingly: Yes Anticipated discharge: Home Within: within 48 hours - Inpatient Certification Medical Necessity: Need Close Monitoring Due to Risk of Patient Decompensation, Need For IV Fluids, Need for Pain Control, Need for IV Antibiotics, Need for Surgery, Risk of Complication if Not Cared For in Hospital Post Hospital Care: D/C Validation Software Facilitator Documentation
[2017-10-28] MEDS ORDERED: DOXYCYCLINE HYCLATE INJ 100 MG VIAL ONE (23:57)
--- NOTE | 2017-10-29 00:26 | PDOC PROGRESS REPORT ---
Subjective Progress Note for:: 10/29/17 Subjective:: pt seen upon arrival to floor. Pt and mother reports patient passing more clots after medication administered in ER by myself. She reports nausea and abd cramping. Reason For Visit: INCOMPLETE SPONTANOUS Physical Exam - Physical Exam Vital Signs: Temp Pulse Resp BP Pulse Ox 98.5 F 112 H 16 96/63 L 100 10/28/17 20:09 10/28/17 20:09 10/28/17 20:09 10/28/17 20:09 10/28/17 20:09 General appearance: PRESENT: no acute distress, well-developed, well-nourished Head exam: PRESENT: atraumatic, normocephalic Respiratory exam: PRESENT: clear to auscultation marty, symmetrical, unlabored Cardiovascular exam: PRESENT: RRR. ABSENT: diastolic murmur, rubs, systolic murmur GI/Abdominal exam: PRESENT: normal bowel sounds, soft. ABSENT: distended, guarding, mass, organolmegaly, rebound, tenderness Extremities exam: PRESENT: full ROM. ABSENT: calf tenderness, clubbing, pedal edema Musculoskeletal exam: PRESENT: ambulatory Neurological exam: PRESENT: alert, awake, oriented to person, oriented to place , oriented to time, oriented to situation, CN II-XII grossly intact. ABSENT: motor sensory deficit Psychiatric exam: PRESENT: appropriate affect, normal mood. ABSENT: homicidal ideation, suicidal ideation Skin exam: PRESENT: dry, intact, warm. ABSENT: cyanosis, rash Assessment & Plan - Diagnosis (1) Incomplete miscarriage Is this a current diagnosis for this admission?: Yes Plan: fetus passed and c/w approx 14wks fetus. Fetus to be sent to pathology for chromosomes. Cytotec placed for delivery of placenta in the ER. Patient with significant improved bleeding now almost scant. Pt and mother report that more clots passed after cytotec placed in ER. IV DOxy given now since not given in ER. Patient given Nubain and zofran for pain. Scant bleeding now. Suspect placenta delivered in ER prior to patients arrival on 2nd floor. If patient continues to remain hemodynamically stable will continue to monitor on the floor. Repeat labs in am and plan for repeat US. If e/o retained placenta despite cytotec then will plan D&C. Continue to monitor for change in status. Reviewed with patient and mother plan of care. - Time Time Spent with patient: 25-34 minutes Medications reviewed and adjusted accordingly: Yes Anticipated discharge: Home Within: within 24 hours - Inpatient Certification Based on my medical assessment, after consideration of the patient's comorbidities, presenting symptoms, or acuity I expect that the services needed warrant INPATIENT care.: Yes I certify that my determination is in accordance with my understanding of Medicare's requirements for reasonable and necessary INPATIENT services [42 CFR 412.3e].: Yes Medical Necessity: Need For IV Fluids, Need for Pain Control, Need for IV Antibiotics, Risk of Complication if Not Cared For in Hospital
[2017-10-29] MEDS ORDERED: NALBUPHINE HCL INJ 10 MG/1 ML AMPULE INJ ONE (06:26)
--- NOTE | 2017-10-29 06:32 | PDOC PROGRESS REPORT ---
Subjective Subjective:: Called to see patient due to passage of blood clot. Denies Dizzy lightheaded. reports abd pain and cramping.. Reason For Visit: INCOMPLETE SPONTANOUS Physical Exam - Physical Exam Vital Signs: Temp Pulse Resp BP Pulse Ox 98.5 F 98 18 120/64 97 10/28/17 23:35 10/28/17 23:35 10/28/17 23:35 10/28/17 23:35 10/28/17 23:35 General appearance: PRESENT: no acute distress, well-developed, well-nourished Head exam: PRESENT: atraumatic, normocephalic Respiratory exam: PRESENT: clear to auscultation marty, symmetrical, unlabored Cardiovascular exam: PRESENT: RRR. ABSENT: diastolic murmur, rubs, systolic murmur Vascular exam: PRESENT: normal capillary refill GI/Abdominal exam: PRESENT: normal bowel sounds, soft, tenderness. ABSENT: distended, guarding, mass, organolmegaly, rebound Rectal exam: PRESENT: deferred Extremities exam: PRESENT: full ROM. ABSENT: calf tenderness, clubbing, pedal edema Neurological exam: PRESENT: alert, awake, oriented to person, oriented to place , oriented to time, oriented to situation, CN II-XII grossly intact. ABSENT: motor sensory deficit Psychiatric exam: PRESENT: appropriate affect, normal mood. ABSENT: homicidal ideation, suicidal ideation Skin exam: PRESENT: abrasion Assessment & Plan - Diagnosis (1) Incomplete miscarriage Is this a current diagnosis for this admission?: Yes Plan: Fetus sent separately. Upon arrival to room pt is sitting on toilet and passed a blood clot and reports that something else is coming. Inspected blood clot which was a blood clot with poss umbilical cord then patient passed tissue - - inspected and appears to be intact spontaneously. Pt was on her way to US - will give pain medication and then to pathology, also repeat CBC ordered. Placenta send to pathology but appears to be intact with membranes Continue to monitor. If increased bleeding or evidence of retained products then may need D&C - Time Time Spent with patient: 15-24 minutes Medications reviewed and adjusted accordingly: Yes Anticipated discharge: Home Within: within 48 hours - Inpatient Certification Based on my medical assessment, after consideration of the patient's comorbidities, presenting symptoms, or acuity I expect that the services needed warrant INPATIENT care.: Yes I certify that my determination is in accordance with my understanding of Medicare's requirements for reasonable and necessary INPATIENT services [42 CFR 412.3e].: Yes Medical Necessity: Need Close Monitoring Due to Risk of Patient Decompensation, Need For IV Fluids, Need for Pain Control Post Hospital Care: D/C Signal And Communications Maintainer Documentation
[2017-10-29] MEDS ORDERED: NALBUPHINE HCL INJ 10 MG/1 ML AMPULE ONE (06:33)
[2017-10-29 07:23] LABS: HEMATOCRIT 26.8 % (36.0-47.0); MEAN CORPUSCULAR HEMOGLOBIN 30.3 pg (27.0-33.4); MEAN CORPUSCULAR HGB CONC 35.9 g/dL (32.0-36.0); MEAN CORPUSCULAR VOLUME 84 fl (80-97); PLATELET COUNT 280 10^3/uL (150-450); RED BLOOD COUNT 3.19 10^6/uL (3.72-5.28); RED CELL DISTRIBUTION WIDTH 12.6 % (11.5-14.0)
[2017-10-29 07:37] LABS: HEMOGLOBIN 9.6 g/dL (12.0-15.5)
[2017-10-29 07:50] LABS: ABSOLUTE LYMPHOCYTES# (MANUAL) 0.7 10^3/uL (0.5-4.7); ABSOLUTE NEUTROPHILS# (MANUAL) 16.3 10^3/uL (1.7-8.2); BAND NEUTROPHILS % (MANUAL) 2 % (3-5); BASOPHILS % (MANUAL) 0 % (0-2); EOSINOPHILS % (MANUAL) 0 % (0-6); LYMPHOCYTES % (MANUAL) 4 % (13-45); MONOCYTES % (MANUAL) 0 % (3-13); SEGMENTED NEUTROPHILS % (MAN) 94 % (42-78); TOTAL CELLS COUNTED 100
[2017-10-29 07:51] LABS: PLATELET COMMENT ADEQUATE; RBC MORPHOLOGY COMMENT NORMO-CYTIC/CHROMIC
--- NOTE | 2017-10-29 09:53 | RADIOLOGY REPORT (SQ) ---
EXAM DESCRIPTION: U/S OB LIMITED COMPLETED DATE/TIME: 10/29/2017 9:42 am REASON FOR STUDY: s/p IUFD, please eval if retained placenta COMPARISON: OB ultrasound 10/18/2017, 10/14/2017, 09/25/2017 TECHNIQUE: Limited transabdominal grayscale ultrasound for evaluation of specific requested obstetri elinor parameters. LIMITATIONS: None. FINDINGS: Overall car marked the uterus measures 9.9 x 5.1 x 6.5 cm in size. Endometrial stripe is about 12 mm in thickness along the uterine fundus. There is minimal mixed echo genicity material in the lower uterine segment and cervix, likely blood clot. No retained tiss ue is identified. Cervix 3 cm in length. No cul-de-sac free fluid. Ovaries not evaluated. IMPRESSION: Minimal echogenic debris in the lower uterine segment and cervix likely minimal residual hemorrhage. No retained tissue is identified. Trimester of : Prior ultrasound 10/14/2017 generated an age of 12 weeks 3 days TECHNICAL DOCUMENTATION: JOB ID: [id number] [employer]- All Rights Reserved Reading location - IP/workstation name: [email or web address]
[2017-10-29] MEDS ORDERED: ACETAMINOPHEN WITH CODEINE #3 TABLET PO PRN ×2 (10:40)
--- NOTE | 2017-10-29 12:12 | PDOC DISCHARGE SUMMARY ---
General - Admit/Disc Date/PCP Admission Date/Primary Care Provider: 10/28/17 22:00 Discharge Date: 10/29/17 - Discharge Diagnosis (1) Incomplete miscarriage Is this a current diagnosis for this admission?: Yes (2) UTI (urinary tract infection) during Is this a current diagnosis for this admission?: Yes - Additional Information Resuscitation Status: Full Code Home Medications: No Home Medications 10/29/17 History of Present Illness History of Present Illness: TATO DAVIS is a 21 year old female Hospital Course Hospital Course: passed 14 wk IUFD earlier, placenta passed shortly afterward. No fever. doing well now. Physical Exam - Physical Exam Vital Signs: Temp Pulse Resp BP Pulse Ox 97.8 F 75 16 122/72 99 10/29/17 11:39 10/29/17 11:39 10/29/17 11:39 10/29/17 11:39 10/29/17 11:39 General appearance: PRESENT: no acute distress, cooperative GI/Abdominal exam: PRESENT: soft - nontender, Result Laboratory Results: 10/29/17 06:58 10/29/17 06:58 WBC 17.0 H RBC 3.19 L Hgb 9.6 L D Hct 26.8 L MCV 84 MCH 30.3 MCHC 35.9 RDW 12.6 Plt Count 280 Seg Neutrophils % Not Reportable Lymphocytes % Not Reportable Monocytes % Not Reportable Eosinophils % Not Reportable Basophils % Not Reportable Absolute Neutrophils Not Reportable Absolute Lymphocytes Not Reportable Absolute Monocytes Not Reportable Absolute Eosinophils Not Reportable Absolute Basophils Not Reportable Impressions: Obstetrics Ultrasound 10/29/17 06:00 IMPRESSION: Minimal echogenic debris in the lower uterine segment and cervix likely minimal residual hemorrhage. No retained tissue is identified. Trimester of : Prior ultrasound 10/14/2017 generated an age of 12 weeks 3 days Status: Imported from PACS Plan Discharge Plan: discharge home with precautions given re: fever and bleeding. Pt to follow up in 2 weeks at [facility]. Discussed with patient and family regarding chromosome analysis being done including that there could be a cost associated with this as insurance do not always cover the analysis. Voices understanding and would like to proceed with analysis. Will discharge with doxycycline for 5 days as a prophylaxis. Time Spent: Greater than 30 Minutes
--- NOTE | 2017-10-29 12:17 | Physician Advisory Note ---
Physician Advisor ProgressNote .: [facility], I have reviewed the medical record for this patient. Physician Advisor Statement: Please consider documenting, if you agree: 1. "Acute Blood Loss Anemia due to Miscarriage" 2. Medical necessity: Incomplete SAB may need to be "Observation" status initially, until pt shows evidence of instability, or provider concern necessitates 2nd overnight stay. - In this case, pt has had precipitous drop in H/H, & worsening WBC count, since arrival. If these, or other, issues are concerning to attending & necessitate a 2nd MN in hospital, please document this in chart, and Inpatient status will then be appropriate in this case. Thanks! CK
[2017-10-29 12:32] VITALS: BP 108/66
== END 2017-10-29 13:49 | disposition home or self-care (01) ==
LOC: ER 20:04 → INTOOBSV 22:00 → EH 22:00 → 2N 23:15
PROVIDERS: ADMIT Student in an Organized Health Care Education/Training Program; ATTEND Student in an Organized Health Care Education/Training Program
DX: O03.38 Urinary tract infection following incomplete spontaneous abortion (principal); N39.0 Urinary tract infection, site not specified; O43.892 Other placental disorders, second trimester; O41.1220 Chorioamnionitis, second trimester, not applicable or unspecified
CPT/HCPCS: 99284; 86900; 86901; 36415 ×2; 85025 ×2; 88233; 88262; 88305 ×2; 76815; J3490; J2300 ×2; J2405; J7120

== ENCOUNTER → 2018-08-15 | Outpatient (CLI) | payer SELFPAY ==
--- NOTE | 2018-08-15 16:15 | RADIOLOGY REPORT (SQ) ---
EXAM DESCRIPTION: U/S [id number] TRNABD 1GES W/ODOP COMPLETED DATE/TIME: 08/15/2018 3:56 pm REASON FOR STUDY: Z34.81 ENCOUNTER FOR SUPRVSN OF NORMAL , FIRST TRIMESTER Z34.81 ENCOUNTE R FOR SUPRVSN OF NORMAL , FIRST TRIM COMPARISON: No previous this TECHNIQUE: Transabdominal static and realtime grayscale images acquired of the pelvis. Additional se lected spectral and color Doppler images recorded. All images stored on PACs. bHCG: Unknown CLINICAL DATES: Unknown LIMITATIONS: None. FINDINGS: FETUS: Single Living intrauterine . ULTRASOUND EGA: 6 weeks 4 days ULTRASOUND DARLING: 04/06/2019 EFW: Not applicable less than 20 weeks. CRL: 0.4 cm FHR: 124 beats per minute. SURVEY: Too early to assess. AMNIOTIC FLUID: Adequate amount. PLACENTA: Not yet developed due to early gestation. SUBCHORIONIC BLEED: No SIZE OF BLEED: Not applicable. UTERUS: No masses. No anomalies. Uterus is 9 x 5 x 6.5 cm in size CERVICAL LENGTH: 3 cm Closed. RIGHT ADNEXA: Normal ovary with normal vascular flow. Right ovary is 3.4 x 2.1 x 2.2 cm in size. No adnexal free fluid. No adnexal masses. LEFT ADNEXA: Normal ovary with normal vascular flow. Left ovary is 2.3 x 3.6 x 1.1 cm in size. No adnexal free fluid. No adnexal masses. FREE FLUID: None. OTHER: No other significant finding. IMPRESSION: LIVING INTRAUTERINE . EGA 6 weeks 4 days Trimester of : First - 0 to 13 weeks. TECHNICAL DOCUMENTATION: JOB ID: [id number]- All Rights Reserved rev Reading location - IP/workstation name: [facility]
== END ==
LOC: RAD 18:44
PROVIDERS: ATTEND Nurse Practitioner
DX: Z34.81 Encounter for supervision of other normal pregnancy, first trimester (principal)
CPT/HCPCS: 76801

== ENCOUNTER 2019-01-08 08:31 | Emergency (ER) | payer MEDICAID ==
--- NOTE | 2019-01-08 09:47 | ER Document Report ---
ED Medical Screen (RME) - General Chief Complaint: Breathing Difficulty Stated Complaint: DIFFICULTY BREATHING Time Seen by Provider: 01/08/19 09:45 Primary Care Provider: PEDRO BAKER APRN [Primary Care Provider] - Follow up as needed Mode of Arrival: Wheelchair Information source: Patient Notes: 23-year-old female presented to ED for complaint of lightheaded at work getting up out of her chair she became more dizzy and fell. She states she had pain in her back and chest when she fell. She does not have any pain at this time. She states she does want her baby checked out. She is 3 para 0 she had 2 miscarriages. She states the last time she was seen by BLENDING OPERATOR was 2 weeks ago. Lung sounds are clear to auscultation and I can feel the baby move. I have greeted and performed a rapid initial assessment of this patient. A comprehensive ED assessment and evaluation of the patient, analysis of test results and completion of medical decision making process will be conducted by an additional ED providers. Dictation of this chart was performed using voice recognition software; therefore, there may be some unintended grammatical errors. TRAVEL OUTSIDE OF THE [place] IN LAST 30 DAYS: No - Related Data Allergies/Adverse Reactions: No Known Allergies Allergy (Verified 01/08/19 08:32) Past Medical History - Social History Frequency of alcohol use: None Drug Abuse: None Renal/ Medical History: Denies: Hx Peritoneal Dialysis Traumatic Medical History: Reports: Hx Fractures - C5,C6- Cheerleading accident Past Surgical History: Reports: Hx Breast Surgery - right breast cyst, Hx Orthopedic Surgery - C5-C6 surgery - Immunizations Immunizations up to date: Yes Hx Diphtheria, Pertussis, Tetanus Vaccination: Yes History of Influenza Vaccine for 05/2017 - 10/2017 Season: Refused Physical Exam - Vital signs Vitals: Temp Pulse Resp BP Pulse Ox 97.5 F 99 20 113/62 100 01/08/19 08:36 01/08/19 08:36 01/08/19 08:36 01/08/19 08:36 01/08/19 08:36 Course - Vital Signs Vital signs: Temp Pulse Resp BP Pulse Ox 97.5 F 99 20 113/62 100 01/08/19 08:36 01/08/19 08:36 01/08/19 08:36 01/08/19 08:36 01/08/19 08:36 Doctor's Discharge - Discharge Referrals: PEDRO BAKER, JESUS [Primary Care Provider] - Follow up as needed
[2019-01-08 10:36] LABS: APPEARANCE,URINE SLIGHTLY-CLOUDY; BILIRUBIN,URINE NEGATIVE (NEGATIVE); COLOR,URINE YELLOW; GLUCOSE, URINE NEGATIVE (NEGATIVE); KETONES,URINE NEGATIVE (NEGATIVE); LEUKOCYTE ESTERASE,URINE SMALL (NEGATIVE); NITRITE,URINE NEGATIVE (NEGATIVE); PROTEIN,URINE NEGATIVE (NEGATIVE); URINE SPECIFIC GRAVITY 1.023; UROBILINOGEN,URINE NEGATIVE mg/dL (<2.0)
[2019-01-08 10:43] LABS: ABSOLUTE EOSINOPHILS # (AUTO) 0.1 10^3/uL (0.0-0.6); ABSOLUTE LYMPHOCYTES (AUTO) 1.6 10^3/uL (0.5-4.7); ABSOLUTE MONOCYTES (AUTO) 0.5 10^3/uL (0.1-1.4); ABSOLUTE NEUT (AUTO) 8.5 10^3/uL (1.7-8.2); BASOPHILS % (AUTO) 0.2 % (0-2); EOSINOPHILS % (AUTO) 1.3 % (0-6); HEMATOCRIT 36.8 % (36.0-47.0); HEMOGLOBIN 12.5 g/dL (12.0-15.5); LYMPHOCYTES % (AUTO) 14.6 % (13-45); MEAN CORPUSCULAR HEMOGLOBIN 30.1 pg (27.0-33.4); MEAN CORPUSCULAR HGB CONC 34.1 g/dL (32.0-36.0); MEAN CORPUSCULAR VOLUME 88 fl (80-97); MONOCYTES % (AUTO) 4.5 % (3-13); PLATELET COUNT 313 10^3/uL (150-450); RED BLOOD COUNT 4.16 10^6/uL (3.72-5.28); RED CELL DISTRIBUTION WIDTH 12.8 % (11.5-14.0); SEGMENTED NEUTROPHILS % (AUTO) 79.4 % (42-78); TOTAL CELLS COUNTED % (AUTO) 100 %; WHITE BLOOD COUNT 10.7 10^3/uL (4.0-10.5)
[2019-01-08 11:08] LABS: ALANINE AMINOTRANSFERASE 16 U/L (9-52); ALBUMIN 3.6 g/dL (3.5-5.0); ALKALINE PHOSPHATASE 71 U/L (38-126); ANION GAP 11 (5-19); ASPARTATE AMINO TRANSFERASE 21 U/L (14-36); BILIRUBIN,DIRECT 0.1 mg/dL (0.0-0.4); BILIRUBIN,TOTAL 0.3 mg/dL (0.2-1.3); BLOOD UREA NITROGEN 10 mg/dL (7-20); CALCIUM 9.2 mg/dL (8.4-10.2); CARBON DIOXIDE 21 mmol/L (22-30); CHLORIDE 107 mmol/L (98-107); POTASSIUM 3.8 mmol/L (3.6-5.0); SODIUM 139.2 mmol/L (137-145); TOTAL PROTEIN 6.8 g/dL (6.3-8.2)
[2019-01-08 11:12] LABS: GLUCOSE 60 mg/dL (75-110)
--- NOTE | 2019-01-08 14:30 | ER Document Report ---
ED GI/ - General Chief Complaint: Breathing Difficulty Stated Complaint: DIFFICULTY BREATHING Time Seen by Provider: 01/08/19 09:45 Primary Care Provider: PEDRO BAKER APRN [NO LOCAL MD] - Follow up as needed Mode of Arrival: Wheelchair Information source: Patient, Relative Notes: Patient is a 23-year-old female comes emergency room complaining of having near syncopal episode. Patient states she got up this morning and went to work when she got up from distal to the bathroom she had a bout of dizziness and lightheadedness and nearly fell. She sat down and continued to be dizzy so she came to the emergency room. Patient's pertinent history as she is approximately 6 months gestation she is 3 para 0 she is a 2 miscarriages. Patient states she last ate prior to coming in she had a [employer]. Previous that she had a since early evening the night before. She also states she is not drinking a lot of fluids. She denies any other medical problems. TRAVEL OUTSIDE OF THE [place] IN LAST 30 DAYS: No - HPI Patient complains to provider of: . No: Abdominal pain, Vomiting Onset: Just prior to arrival Timing/Duration: Sudden, Better Quality of pain: No pain Severity at maximum: Moderate Severity in ED: Mild Pain Level: 1 Context: Vaginal bleeding (Compared to normal period): None Menstrual period history: LMP: 6 months : 3 Para: 0 Abortions: 1 heart tones (bpm): 128 Associated symptoms: Dizzy, Lightheaded Exacerbated by: Standing Relieved by: Supine Similar symptoms previously: Yes Recently seen / treated by doctor: No - Related Data Allergies/Adverse Reactions: No Known Allergies Allergy (Verified 01/08/19 08:32) Past Medical History - General Information source: Patient - Social History Smoking Status: Never Smoker Frequency of alcohol use: None Drug Abuse: None Lives with: Family Family History: Reviewed & Not Pertinent Patient has suicidal ideation: No Patient has homicidal ideation: No Renal/ Medical History: Denies: Hx Peritoneal Dialysis Traumatic Medical History: Reports: Hx Fractures - C5,C6- Cheerleading accident Past Surgical History: Reports: Hx Breast Surgery - right breast cyst, Hx Orthopedic Surgery - C5-C6 surgery - Immunizations Immunizations up to date: Yes Hx Diphtheria, Pertussis, Tetanus Vaccination: Yes Review of Systems - Review of Systems Constitutional: No symptoms reported EENT: No symptoms reported Cardiovascular: No symptoms reported Respiratory: No symptoms reported Gastrointestinal: No symptoms reported Genitourinary: No symptoms reported Female Genitourinary: See HPI, Musculoskeletal: No symptoms reported Skin: No symptoms reported Hematologic/Lymphatic: No symptoms reported Neurological/Psychological: Weakness -: Yes All other systems reviewed and negative Physical Exam - Vital signs Vitals: Temp Pulse Resp BP Pulse Ox 97.5 F 99 20 113/62 100 01/08/19 08:36 01/08/19 08:36 01/08/19 08:36 01/08/19 08:36 01/08/19 08:36 Interpretation: Normal - Notes Notes: PHYSICAL EXAMINATION: GENERAL: Well-appearing, well-nourished and in no acute distress. HEAD: Atraumatic, normocephalic. EYES: Pupils equal round and reactive to light, extraocular movements intact, conjunctiva are normal. ENT: Nares patent, oropharynx clear without exudates. Moist mucous membranes. NECK: Normal range of motion, supple without lymphadenopathy LUNGS: Breath sounds clear to auscultation bilaterally and equal. No wheezes rales or rhonchi. HEART: Regular rate and rhythm without murmurs ABDOMEN: Physical exam patient's area of concern is her abdominal area. Patient has a gravid abdomen proximal gestation of 6 months. Displays bowel sounds all 4 quads. No tenderness palpable. Female : deferred Musculoskeletal: Normal range of motion, no pitting or edema. No cyanosis. NEUROLOGICAL: Normal speech, normal gait. Normal sensory, motor exams PSYCH: Normal mood, normal affect. SKIN: Warm, Dry, normal turgor, no rashes or lesions noted. Course - Re-evaluation Re-evalutation: 01/09/19 08:23 Patient's course state emergency room is been uneventful. Was found that her glucose was 60 on her lab work. Patient admitted to not eating very well. And she is not drinking much. On my initial examination patient had been here an extended period of time secondary to volume in the ER I encouraged her to do a liter of fluids and to eat something that she is already had some crackers to snack upon. Patient was very agitated and wanted to leave. Given the vital signs are stable heart tones were you have been seen today in the Emergency Department for your concerns. At this time there is no obvious cause for your concerns. You may have received labs or imaging which you can receive copies of from medical records. If your symptoms do worsen or new symptoms occur you must return immediately for further care. Either way you must follow up with the primary care physician for further evaluation and she is to follow-up with her ETHICS MANAGER within 24 hours I felt was safe to let patient go. She did not want to wait to do an Accu-Chek. Watch patient ambulate and she had no sense of dizziness and no further symptoms. 01/09/19 08:25 01/09/19 08:25 - Vital Signs Vital signs: Temp Pulse Resp BP Pulse Ox 98.8 F 94 18 108/58 L 100 01/08/19 14:40 01/08/19 14:40 01/08/19 14:40 01/08/19 14:40 01/08/19 14:40 - Laboratory Result Diagrams: 01/08/19 10:15 01/08/19 10:15 Laboratory results interpreted by me: 01/08/19 01/08/19 01/08/19 10:15 10:15 10:15 WBC 10.7 H Seg Neutrophils % 79.4 H Absolute Neutrophils 8.5 H Carbon Dioxide 21 L Glucose 60 L Ur Leukocyte Esterase SMALL H Discharge - Discharge Clinical Impression: Hypoglycemia Qualifiers: Weeks of gestation: 25 weeks Qualified Code(s): Z3A.25 - 25 weeks gestation of Condition: Stable Disposition: HOME, SELF-CARE Instructions: Hypoglycemia Diet ([facility]), Hypoglycemia ([facility]), ([facility]) Additional Instructions: As we discussed is highly important that you eat more frequent throughout the day. You are eating for 2 and your blood sugars are dropping to the point where you are not able to handle it the need of your body or the babies. He also need to keep fluids going as well but you need to do a good balance because if you drink too much water you will decrease your sugar as well. So eating a good breakfast and in a snack later and had a lunch and then a snack and dinner and then a snack etc. is martinez to your health and the babies. Contact your OB for further information on how to keep your sugars normal during . Should you have any other concerns or problems return to ER for recheck. Forms: Special Work Note, Return to Work Referrals: PEDRO BAKER, JESUS [NO LOCAL MD] - Follow up as needed
[2019-01-08 14:43] VITALS: BP 108/58
== END 2019-01-08 14:43 | disposition home or self-care (01) ==
LOC: ER 08:31
DX: O99.282 Endocrine, nutritional and metabolic diseases complicating pregnancy, second trimester (principal); E16.2 Hypoglycemia, unspecified; O26.892 Other specified pregnancy related conditions, second trimester; R53.1 Weakness; Z3A.25 25 weeks gestation of pregnancy
CPT/HCPCS: 36415; 80053; 81001; 85025; 99284

== ENCOUNTER 2019-03-14 09:57 | Outpatient (CLI) | payer MEDICAID ==
[2019-03-14 10:29] LABS: APPEARANCE,URINE CLOUDY; BILIRUBIN,URINE NEGATIVE (NEGATIVE); COLOR,URINE YELLOW; GLUCOSE, URINE NEGATIVE (NEGATIVE); KETONES,URINE NEGATIVE (NEGATIVE); LEUKOCYTE ESTERASE,URINE MODERATE (NEGATIVE); NITRITE,URINE NEGATIVE (NEGATIVE); PROTEIN,URINE 30 mg/dL (NEGATIVE); URINE SPECIFIC GRAVITY 1.015; UROBILINOGEN,URINE NEGATIVE mg/dL (<2.0)
[2019-03-14 11:00] LABS: URINE AMPHETAMINES SCREEN NEGATIVE; URINE BARBITURATES SCREEN NEGATIVE; URINE BENZODIAZEPINES SCREEN NEGATIVE; URINE COCAINE SCREEN NEGATIVE; URINE MARIJUANA (THC) SCREEN NEGATIVE; URINE METHADONE SCREEN NEGATIVE; URINE PHENCYCLIDINE SCREEN NEGATIVE
--- NOTE | 2019-03-14 11:47 | Non Stress Test Report ---
Non Stress Test Datetime Report Generated by CPN: 03/14/2019 11:47 DEMOGRAPHIC Test Number: 1 EGA NST: 36.5 INDICATION Indication for Study: Ordered by Provider MONITORING Monitor Explained: Monitor Explained; Test Explained Time on Monitor: 03/14/2019 10:16 Time off Monitor: 03/14/2019 11:26 NST Duration: 70 NST INTERVENTIONS NST Interventions: PO Hydration Physician Notified NST: KDuncan,CNM BABY A: [id number] BABY A Movement : Present Contraction Frequency : Irregular FHR Baseline : 145 Accelerations : 15X15 Decelerations : None Variability : Moderate 6-25bpm NST Review: Meets Criteria for Reactive NST NST Review and Verified By : DYLAN Rendon NST Results: Reactive NST REPORT Report Trigger: Send Report
== END 2019-03-14 11:38 | disposition home or self-care (01) ==
LOC: LC 09:57
PROVIDERS: ATTEND Student in an Organized Health Care Education/Training Program
PROC: 4A1HXCZ Monitoring of Products of Conception, Cardiac Rate, External Approach (ICD-10-PCS; principal; 2019-03-14)
DX: O47.03 False labor before 37 completed weeks of gestation, third trimester (principal); Z3A.36 36 weeks gestation of pregnancy
CPT/HCPCS: 59025; 80307; 81005

== ENCOUNTER 2019-03-26 23:48 | Outpatient (CLI) | payer MEDICAID ==
[2019-03-27 01:08] LABS: APPEARANCE,URINE CLEAR; BILIRUBIN,URINE NEGATIVE (NEGATIVE); COLOR,URINE STRAW; GLUCOSE, URINE NEGATIVE (NEGATIVE); KETONES,URINE NEGATIVE (NEGATIVE); LEUKOCYTE ESTERASE,URINE NEGATIVE (NEGATIVE); NITRITE,URINE NEGATIVE (NEGATIVE); PROTEIN,URINE NEGATIVE (NEGATIVE); URINE SPECIFIC GRAVITY 1.006; UROBILINOGEN,URINE NEGATIVE mg/dL (<2.0)
[2019-03-27 01:23] LABS: URINE AMPHETAMINES SCREEN NEGATIVE; URINE BARBITURATES SCREEN NEGATIVE; URINE BENZODIAZEPINES SCREEN NEGATIVE; URINE COCAINE SCREEN NEGATIVE; URINE MARIJUANA (THC) SCREEN NEGATIVE; URINE METHADONE SCREEN NEGATIVE; URINE PHENCYCLIDINE SCREEN NEGATIVE
--- NOTE | 2019-03-27 03:51 | Non Stress Test Report ---
Non Stress Test Datetime Report Generated by CPN: 03/27/2019 03:51 DEMOGRAPHIC EGA NST: 38.4 INDICATION Indication for Study: Ordered by Provider VITAL SIGNS Temperature - NST: 98.6 Pulse - NST: 76 RESP - NST: 18 NBPSYS NST: 107 NBPDIA NST: 64 MONITORING Monitor Explained: Monitor Explained; Test Explained; Patient Verbalized Understanding Time on Monitor: 03/27/2019 00:27 Time off Monitor: 03/27/2019 03:33 NST Duration: 186 NST INTERVENTIONS NST Interventions: PO Hydration Physician Notified NST: Dr. Shearer BABY A: [id number] BABY A Movement : Present Contraction Frequency : 2-5 FHR Baseline : 135 Decelerations : None NST Review: Meets Criteria for Reactive NST NST Review and Verified By : Mike Nova, RN NST Results: Reactive NST REPORT Report Trigger: Send Report
== END 2019-03-27 03:48 | disposition home or self-care (01) ==
LOC: LC 23:48
PROVIDERS: ATTEND Student in an Organized Health Care Education/Training Program
PROC: 4A1HXCZ Monitoring of Products of Conception, Cardiac Rate, External Approach (ICD-10-PCS; principal; 2019-03-26)
DX: O47.1 False labor at or after 37 completed weeks of gestation (principal); Z3A.38 38 weeks gestation of pregnancy
CPT/HCPCS: 59025; 80307; 81005

== ENCOUNTER 2019-04-07 16:35 | Outpatient (CLI) | payer MEDICAID ==
[2019-04-07 17:33] LABS: APPEARANCE,URINE CLEAR; BILIRUBIN,URINE NEGATIVE (NEGATIVE); COLOR,URINE YELLOW; GLUCOSE, URINE NEGATIVE (NEGATIVE); KETONES,URINE NEGATIVE (NEGATIVE); LEUKOCYTE ESTERASE,URINE NEGATIVE (NEGATIVE); NITRITE,URINE NEGATIVE (NEGATIVE); PROTEIN,URINE 30 mg/dL (NEGATIVE); URINE SPECIFIC GRAVITY 1.019; UROBILINOGEN,URINE NEGATIVE mg/dL (<2.0)
[2019-04-07 17:56] LABS: URINE AMPHETAMINES SCREEN NEGATIVE; URINE BARBITURATES SCREEN NEGATIVE; URINE BENZODIAZEPINES SCREEN NEGATIVE; URINE COCAINE SCREEN NEGATIVE; URINE MARIJUANA (THC) SCREEN NEGATIVE; URINE METHADONE SCREEN NEGATIVE; URINE PHENCYCLIDINE SCREEN NEGATIVE
== END 2019-04-07 19:33 | disposition home or self-care (01) ==
LOC: LC 16:35
PROVIDERS: ATTEND Obstetrics & Gynecology
PROC: 4A1HXCZ Monitoring of Products of Conception, Cardiac Rate, External Approach (ICD-10-PCS; principal; 2019-04-07)
DX: Z34.93 Encounter for supervision of normal pregnancy, unspecified, third trimester (principal)
CPT/HCPCS: 59025; 80307; 81005

== ENCOUNTER 2019-04-11 06:22 | Inpatient (IN) | payer MEDICAID ==
[2019-04-11] MEDS ORDERED: OXYTOCIN/NORMAL SALINE 20 UNIT/1,000 ML RTUINJ ONE (07:06)
[2019-04-11] MEDS: RINGERS SOLUTION,LACTATED 1,000 ML IV PRN ×3 (07:08→13:50)
[2019-04-11 07:31] LABS: ABSOLUTE EOSINOPHILS # (AUTO) 0.1 10^3/uL (0.0-0.6); ABSOLUTE LYMPHOCYTES (AUTO) 1.3 10^3/uL (0.5-4.7); ABSOLUTE MONOCYTES (AUTO) 0.5 10^3/uL (0.1-1.4); ABSOLUTE NEUT (AUTO) 6.4 10^3/uL (1.7-8.2); BASOPHILS % (AUTO) 0.6 % (0-2); EOSINOPHILS % (AUTO) 0.8 % (0-6); HEMATOCRIT 33.5 % (36.0-47.0); HEMOGLOBIN 11.6 g/dL (12.0-15.5); LYMPHOCYTES % (AUTO) 16.1 % (13-45); MEAN CORPUSCULAR HEMOGLOBIN 29.3 pg (27.0-33.4); MEAN CORPUSCULAR HGB CONC 34.7 g/dL (32.0-36.0); MEAN CORPUSCULAR VOLUME 85 fl (80-97); MONOCYTES % (AUTO) 5.7 % (3-13); PLATELET COUNT 280 10^3/uL (150-450); RED BLOOD COUNT 3.97 10^6/uL (3.72-5.28); RED CELL DISTRIBUTION WIDTH 13.3 % (11.5-14.0); SEGMENTED NEUTROPHILS % (AUTO) 76.8 % (42-78); TOTAL CELLS COUNTED % (AUTO) 100 %; WHITE BLOOD COUNT 8.4 10^3/uL (4.0-10.5)
[2019-04-11] MEDS ORDERED: OXYTOCIN/NORMAL SALINE 20 UNIT/1,000 ML RTUINJ IV PRN ×2 (07:34→16:46)
[2019-04-11] MEDS ORDERED: RINGERS SOLUTION,LACTATED 300 ML IV ONE (07:34)
[2019-04-11 07:37] LABS: APPEARANCE,URINE CLOUDY; BILIRUBIN,URINE NEGATIVE (NEGATIVE); COLOR,URINE YELLOW; GLUCOSE, URINE NEGATIVE (NEGATIVE); KETONES,URINE NEGATIVE (NEGATIVE); LEUKOCYTE ESTERASE,URINE LARGE (NEGATIVE); NITRITE,URINE NEGATIVE (NEGATIVE); PROTEIN,URINE 30 mg/dL (NEGATIVE); URINE SPECIFIC GRAVITY 1.015; UROBILINOGEN,URINE NEGATIVE mg/dL (<2.0)
[2019-04-11 07:55] LABS: URINE AMPHETAMINES SCREEN NEGATIVE; URINE BARBITURATES SCREEN NEGATIVE; URINE BENZODIAZEPINES SCREEN NEGATIVE; URINE COCAINE SCREEN NEGATIVE; URINE MARIJUANA (THC) SCREEN NEGATIVE; URINE METHADONE SCREEN NEGATIVE; URINE PHENCYCLIDINE SCREEN NEGATIVE
[2019-04-11] MEDS ORDERED: LIDOCAINE 1% INJ-PF (10 MG/ML) 30 ML SDV ONE (08:21)
[2019-04-11] MEDS ORDERED: MISOPROSTOL 0.2 MG TABLET ONE (08:21)
[2019-04-11] MEDS ORDERED: OXYTOCIN 10 UNIT/ML VIAL ONE (08:21)
--- NOTE | 2019-04-11 10:20 | Admission Physical ---
Datetime Report Generated by CPN: 04/11/2019 10:20 CURRENT ADMISSION Hx Assessment: The History has been Reviewed and is Current Chief Complaint: Scheduled Induction of Labor Indication for Induction: Postterm Admit Impression : Postterm, Intrauterine ; Induction of Labor Admit Plan: Admit to Unit; Initiate Labor Induction Protocol ALLERGIES Medication Allergies: No Medication Allergies: No Known Allergies (03/27/2019) Latex: No Latex Allergies Food Allergies: None Environmental Allergies: None OBSTETRICAL HISTORY EDC: 04/06/2019 00:00 : 3 Para: 0 Term: 0 : 0 SAB: 2 IAB: 0 Ectopic: 0 Livin Cesareans: 0 VBACs: 0 Multiple Births: 0 Gestational Diabetes: No Rh Sensitization: No Incompetent Cervix: No CEE: No Infertility: No ART Treatment: No Uterine Anomaly: No IUGR: No Hx Previous C/S: No Macrosomia: No Hx Loss/Stillborn: No PIH: No Hx : No Placenta Previa/Abruption: No Depression/PP Depression: No PTL/PROM: No Post Hemorrhage: No Current Procedures: Ultrasound Obstetrical History Comments: G1- miscarriaget at 2016 G2- miscarriage at G3- Current SEE RECORDS Alcohol: No Marijuana : No Cocaine: No Other Illicit Drugs: No Cigarettes: Never Smoker. [id number] MEDICAL HISTORY Diabetes: No Blood Transfusion: No Pulmonary Disease (Asthma, TB): No Breast Disease: Yes Hypertension: No Supervisor [employer] Surgery: No Heart Disease: No Hosp/Surgery: Yes Autoimmune Disorder: No Anesthetic Complications: No Kidney Disease: No Abnormal Pap Smear: No Neuro/Epilepsy: No Psychiatric Disorders: No Other Medical Diseases: No Hepatitis/Liver Disease: No Significant Family History: No Varicosities/Phlebitis: No Trauma/Violence : No Thyroid Dysfunction: No Medical History Comments: cyst in right breast- 2009 estimate neck surgery-6 years ago INFECTIOUS HISTORY Gonorrhea: No Genital Herpes: No Chlamydia: No Tuberculosis: No Syphilis: No Hepatitis: No HIV/AIDS Exposure: No Rash or Viral Illness: No HPV: No PHYSICAL EXAM General: Normal HEENT: Normal Neurologic: Normal Thyroid: Normal Heart: Normal Lungs: Normal Breast: Normal Back: Normal Abdomen: Normal Genitourinary Exam: Normal Extremities: Normal DTRs: Normal Pelvic Type: Adequate Physical Exam Comments: GBS neg Vital Signs: Reviewed FETUS A EGA: 40.5 Monitoring: External US Variability: Moderate 6-25bpm Accelerations: 15X15 Admit Comment: G3 AB2 admitted to LD for IOL pot dated, Cat 1 strip, Pitocin infusing anticipating PLANS FOR LABOR AND DELIVERY Labor and Delivery: None Pain Management: Epidural Feeding Preference: Breast Benefit of Breast Feed Discussed: Yes Circumcision: N/A INFORMED CONSENT Assignment: Juani Shearer MD Signature: with User ID: [email or web address] : with User ID: [email or web address]
[2019-04-11] MEDS ORDERED: PHENYLEPHRINE HCL INJ/PF 10 MG/1 ML SDV ONE (13:36)
[2019-04-11] MEDS ORDERED: BUPIVACAINE HCL 0.25 % INJ/PF (2.5 MG/1 ML) 30 ML VIAL ONE (13:37)
[2019-04-11] MEDS ORDERED: EPHEDRINE SULFATE INJ 50 MG/1 ML AMPULE ONE (13:37)
[2019-04-11] MEDS ORDERED: FENTANYL CITRATE INJ/PF 100 MCG/2 ML AMPUL ONE (13:37)
[2019-04-11] MEDS ORDERED: FENTANYL/BUPIVACAINE/NS/PF 300 MCG/150 ML RTUINJ EPI ONE (13:37)
[2019-04-11] MEDS ORDERED: DIBUCAINE 1% OINTMENT 56 GM TP PRN (16:46)
[2019-04-11] MEDS ORDERED: PSEUDOEPHEDRINE HCL 30 MG TABLET PO PRN (16:46)
[2019-04-11] MEDS ORDERED: ACETAMINOPHEN 650 MG SUPP.RECT PR PRN (16:46)
[2019-04-11] MEDS ORDERED: BENZOCAINE/MENTHOL AEROSOL SPRAY 56 ML TOP PRN (16:46)
[2019-04-11] MEDS ORDERED: DIPHENHYDRAMINE HCL 25 MG CAPSULE PO PRN (16:46)
[2019-04-11] MEDS ORDERED: PROMETHAZINE HCL 25 MG TABLET PO PRN (16:46)
[2019-04-11] MEDS ORDERED: MEASLES,MUMPS&RUBELLA VACC/PF 0.5 ML VIAL SUBCUT PRN (16:46)
[2019-04-11] MEDS ORDERED: PROMETHAZINE HCL INJ 25 MG/1 ML VIAL IV PRN (16:46)
[2019-04-11] MEDS ORDERED: DIPH/PERTUSS(ACELL)/TETANUS VAC/PF 0.5 ML SYR (>=10YO) IM PRN (16:46)
[2019-04-11] MEDS ORDERED: MAGNESIUM HYDROXIDE SUSP 30 ML UDCUP PO PRN (16:46)
[2019-04-11] MEDS ORDERED: MISOPROSTOL 0.2 MG TABLET PV ONE (16:46)
[2019-04-11] MEDS ORDERED: NA PHOS,M-B/NA PHOS,DI-BA (ADULT) 133 ML ENEMA PR PRN (16:46)
[2019-04-11] MEDS ORDERED: GLYCERIN/WITCH HAZEL LEAF 1 EACH MED..WIPE TP PRN (16:46)
[2019-04-11] MEDS ORDERED: PROMETHAZINE HCL 25 MG SUPP.RECT PR PRN (16:46)
[2019-04-11] MEDS ORDERED: ACETAMINOPHEN WITH CODEINE #3 TABLET PO PRN ×2 (16:46)
--- NOTE | 2019-04-11 18:34 | Delivery Summary ---
Del Sum A-C Datetime Report Generated by CPN: 04/11/2019 18:34 DELIVERY PERSONNEL DELIVERY PERSONNEL: [id number] Delivery Doctor:: Arleen Hardy CNM Labor and Delivery Nurse:: Thai Bill RNfire alarm installer Nurse:: Annmarie Chavarria RN [employer]:: Myranda Young RN Asbestos Removal Worker/QUALITY IMPROVEMENT ANALYST: Aleah Sánchez, ST MATERNAL INFORMATION Delivery Anesthesia: Epidural Medications After Delivery: Pitocin Bolus-Please Comment; Pitocin Drip 20 Units/1000ml NSS; Cytotec 600mcg Per Rectum/Vagina Meds After Delivery Comment: Pitocin 20 units in 1 L NS bolusing per order Delivery QBL: 100 Maternal Complications: None Provider Comments: viable female from OA to ABHILASH over intact perineum, baby place on mother abd, cord clamped and cut by FOB after 2 minutes, spont delivery of grossly normal intact placenta, 3 VC, cord blood to lab, FFFM, IV Pitocin, massage and cytotec 600 mcg nursery cme and evaluated baby family at Baby and mom remain in recovery in stable condition LABOR SUMMARY EDC: 04/06/2019 00:00 No. Babies in Womb: 1 Attempted: No Labor Anesthesia: Intrathecal LABOR INFORMATION Reason for Induction: Post Dates Onset of Labor: 04/11/2019 13:30 Complete Dilatation: 04/11/2019 15:46 Oxytocin: Induction Group B Beta Strep: NEGATIVE Antibiotics # of Doses: 0 Steroids Given: None Reason Steroids Not Administered: Not Applicable MEMBRANES Membranes Rupture Method: Spontaneous Rupture of Membranes: 04/11/2019 12:18 Length of Rupture (hr): 4.18 Amniotic Fluid Color: Clear Amniotic Fluid Amount: Scant Amniotic Fluid Odor: Normal STAGES OF LABOR Stage 1 hr: 2 Stage 1 min: 16 Stage 2 hr: 0 Stage 2 min: 43 Stage 3 hr: 0 Stage 3 min: 5 Total Time in Labor hr: 3 Total Time in Labor min: 4 VAGINAL DELIVERY Episiotomy: None Laceration #1: None Laceration Extension #1: N/A Laceration Repair: Not Applicable Sponge Count Correct: Yes Sharps Count Correct: Yes CSECTION DELIVERY Primary Indication: N/A CSection Incidence: N/A Labor: N/A Elective: N/A BABY A INFORMATION Infant Delivery Date/Time: 04/11/2019 16:29 Method of Delivery: Vaginal Born in Route : No : N/A Forceps: N/A Vacuum Extraction: N/A Shoulder Dystocia : No PRESENTATION/POSITION BABY A Presentation: Cephalic Cephalic Presentation: Vertex Vertex Position: Left Occipital Anterior Breech Presentation: N/A PLACENTA INFORMATION BABY A Placenta Delivery Time : 04/11/2019 16:34 Placenta Method of Delivery: Spontaneous Placenta Status: Delivered SCORES BABY A Heart Rate 1 min: >100 bpm Resp Effort 1 min: Slow, Irregular Reflex Irritability 1 min: Cough or Sneeze or Pulls Away Muscle Tone 1 min: Active Motion Color 1 min: Blue/Pale Resuscitation Effort 1 min: Tactile Stimulation SCORE 1 MIN: 7 Heart Rate 5 min: >100 bpm Resp Effort 5 min: Slow, Irregular Reflex Irritability 5 min: Cough or Sneeze or Pulls Away Muscle Tone 5 min: Active Motion Color 5 min: Body [place], Extremities Blue Resuscitation Effort 5 min: Tactile Stimulation SCORE 5 MIN: 8 INFANT INFORMATION BABY A Gestational Age at Delivery: 40.5 Gestational Status: Full Term- 39- 40.6 Weeks Infant Outcome : Liveborn Condition : Stable Sex: Female IDENTIFICATION BABY A Infant Verification Date/Time: 04/11/2019 16:49 ID Band Number: [id number] Mother's Name Verified: Yes RN Verifying : JNiebuhr, RN Additional Verifying Personnel: TMartin, RN WEIGHT/LENGTH BABY A Infant Birthweight (gm): 3044 Infant Weight (lb): 6 Infant Weight (oz): 11 Length (in): 19.50 Infant Length (cm): 49.53 CORD INFORMATION BABY A No. Cord Vessels: 3 Nuchal Cord : N/A Cord Blood Taken: Yes-For Eval (Mom's Blood Type - or O+) Suction: Mouth ASSESSMENT BABY A Complications: None Physical Findings at Delivery: Within Normal Limits Infant Respirations: Appears Normal Skin to Skin: Yes Skin to Skin Time (min): 45 Infant Care By: TMartin, RN BABY B INFORMATION : N/A
[2019-04-11] MEDS: DOCUSATE SODIUM 100 MG CAPSULE PO SCH (19:01)
[2019-04-11] MEDS: FERROUS SULFATE 325 MG TABLET PO SCH (19:01)
[2019-04-11] MEDS: FAMOTIDINE 20 MG TABLET PO SCH (21:47)
[2019-04-11] MEDS: IBUPROFEN 800 MG TABLET PO SCH (21:48)
[2019-04-12] MEDS: IBUPROFEN 800 MG TABLET PO SCH ×3 (06:25→21:19)
[2019-04-12 07:34] LABS: HEMATOCRIT 35.8 % (36.0-47.0); HEMOGLOBIN 12.4 g/dL (12.0-15.5); MEAN CORPUSCULAR HEMOGLOBIN 29.4 pg (27.0-33.4); MEAN CORPUSCULAR HGB CONC 34.7 g/dL (32.0-36.0); MEAN CORPUSCULAR VOLUME 85 fl (80-97); PLATELET COUNT 268 10^3/uL (150-450); RED BLOOD COUNT 4.22 10^6/uL (3.72-5.28); RED CELL DISTRIBUTION WIDTH 13.2 % (11.5-14.0); WHITE BLOOD COUNT 11.8 10^3/uL (4.0-10.5)
--- NOTE | 2019-04-12 09:48 | PDOC PROGRESS REPORT ---
Subjective-OB Progress Note for:: 04/12/19 Subjective: Doing well, no c/o, baby in room Physical Exam (OB) Vital Signs: Temp Pulse Resp BP Pulse Ox 97.3 F 79 12 133/76 H 100 04/11/19 18:57 04/11/19 18:57 04/11/19 18:57 04/11/19 18:57 04/11/19 18:57 Intake & Output 04/11/19 04/12/19 04/13/19 06:59 06:59 06:59 Intake Total 838 1000 Balance 838 1000 Weight 71.2 kg - PIH/Pre-Eclampsia Headache: Absent Epigastric Pain: No Visual Changes: No - Lochia Lochia Amount: Scant < 10 ml Lochia Color: Rubra/Red - Abdomen Description: Tender, Soft, Round Hernia Present: No Fundal Description: Firm, Midline Fundal Height: u/u - u/2 Objective-Diagnostic Laboratory: 04/12/19 07:15 04/12/19 07:15 WBC 11.8 H RBC 4.22 Hgb 12.4 Hct 35.8 L MCV 85 MCH 29.4 MCHC 34.7 RDW 13.2 Plt Count 268 Assessment and Plan(PN) - Assessment and Plan (1) Delivery normal Is this a current diagnosis for this admission?: Yes - Time Spent with Patient Time with patient: Less than 15 minutes Medications reviewed and adjusted accordingly: Yes - Disposition Anticipated Discharge: Home Within: within 24 hours
[2019-04-12] MEDS: DOCUSATE SODIUM 100 MG CAPSULE PO SCH ×2 (10:50→18:11)
[2019-04-12] MEDS: FERROUS SULFATE 325 MG TABLET PO SCH ×2 (10:50→18:11)
[2019-04-12] MEDS: SENNOSIDES/DOCUSATE 8.6-50 MG 1 EACH TABLET PO SCH (10:50)
[2019-04-12] MEDS: FAMOTIDINE 20 MG TABLET PO SCH ×2 (10:50→21:19)
[2019-04-12] MEDS: PRENATAL VITAMIN W DHA CAPSULE PO SCH (10:50)
[2019-04-13] MEDS: IBUPROFEN 800 MG TABLET PO SCH (05:54)
--- NOTE | 2019-04-13 09:58 | PDOC PROGRESS REPORT ---
Subjective-OB Progress Note for:: 04/13/19 Subjective: Doing well, no c/o, voiding, scant lochia Physical Exam (OB) Vital Signs: Temp Pulse Resp BP Pulse Ox 97.8 F 92 16 110/53 L 99 04/13/19 08:04 04/13/19 08:04 04/13/19 08:04 04/13/19 08:04 04/13/19 08:04 Intake & Output 04/12/19 04/13/19 04/14/19 06:59 06:59 06:59 Intake Total 838 1000 Balance 838 1000 - PIH/Pre-Eclampsia Headache: Absent Epigastric Pain: No Visual Changes: No - Lochia Lochia Amount: Scant < 10 ml Lochia Color: Rubra/Red - Abdomen Description: Tender, Soft Hernia Present: No Fundal Description: Firm, Midline Fundal Height: u/u - u/2 Objective-Diagnostic Laboratory: 04/12/19 07:15 Assessment and Plan(PN) - Assessment and Plan (1) Delivery normal Is this a current diagnosis for this admission?: Yes (2) Failed induction of labor, delivered Is this a current diagnosis for this admission?: Yes - Time Spent with Patient Time with patient: Less than 15 minutes Medications reviewed and adjusted accordingly: Yes - Disposition Anticipated Discharge: Home Within: within 24 hours
[2019-04-13] MEDS: FAMOTIDINE 20 MG TABLET PO SCH (09:59)
[2019-04-13] MEDS: SENNOSIDES/DOCUSATE 8.6-50 MG 1 EACH TABLET PO SCH (09:59)
[2019-04-13] MEDS: PRENATAL VITAMIN W DHA CAPSULE PO SCH (09:59)
[2019-04-13] MEDS: DOCUSATE SODIUM 100 MG CAPSULE PO SCH (09:59)
[2019-04-13] MEDS: FERROUS SULFATE 325 MG TABLET PO SCH (09:59)
--- NOTE | 2019-04-13 10:01 | PDOC DISCHARGE SUMMARY ---
Final Diagnosis Discharge Date: 04/13/19 - Final Diagnosis (1) Delivery normal Is this a current diagnosis for this admission?: Yes (2) Failed induction of labor, delivered Is this a current diagnosis for this admission?: Yes Discharge Data - Discharge Medication Home Medications: Ferrous Sulfate [Iron] 325 mg PO BID 03/14/19 No122/Iron/Folic Acid [ Multi Tablet] 1 each PO DAILY 03/14/19 Gestational Age: 40.5 Reason(s) for Admission: Induction of Labor - post dates Procedures: NST, Ultrasound Intrapartum Procedure(s): Spontaneous Vaginal Delivery - Data Baby 1 Female Weight: 3.033 kg Home with Mother: Yes Complications: No - Diagnosis Test Laboratory: Temp Pulse Resp BP Pulse Ox 97.8 F 92 16 110/53 L 99 04/13/19 08:04 04/13/19 08:04 04/13/19 08:04 04/13/19 08:04 04/13/19 08:04 04/11/19 04/11/19 04/12/19 06:45 07:13 07:15 RBC 3.97 4.22 Hgb 11.6 L 12.4 Hct 33.5 L 35.8 L Urine Opiates Screen NEGATIVE - Discharge information/Instructions Discharge Activity: Activity As Tolerated, No Lifting Over 10 Pounds, No Lifting/Push/Pulling, Pelvic Rest Discharge Diet: As Tolerated, Regular Disposition: HOME, SELF-CARE Follow [facility] with: [facility] in: 4, Weeks
[2019-04-13 10:22] VITALS: BP 133/76
== END 2019-04-13 13:04 | disposition home or self-care (01) | DRG 807 ==
LOC: LR 06:22 → 2S 18:45
PROVIDERS: ADMIT Obstetrics & Gynecology Gynecology; ATTEND Obstetrics & Gynecology Gynecology
PROC: 10E0XZZ Delivery of Products of Conception, External Approach (ICD-10-PCS; principal; 2019-04-11)
PROC: 3E033VJ Introduction of Other Hormone into Peripheral Vein, Percutaneous Approach (ICD-10-PCS; 2019-04-11)
DX: O48.0 Post-term pregnancy (principal); Z37.0 Single live birth; O61.0 Failed medical induction of labor; Z3A.40 40 weeks gestation of pregnancy
CPT/HCPCS: 36415; 80307; 81005; 85025; 85027; 86592; 86850; 86900; 86901; 94760; J2370; J2590; J3010; J3490